=== PATIENT | female | born 1985 | race Caucasian/White ===

== ENCOUNTER 2017-05-10 11:04 | Outpatient (CLI) | payer OTHER | END 2017-05-10 11:05 | disposition home or self-care (01) | LOC: LAB.R 11:04 | PROVIDERS: ATTEND Obstetrics & Gynecology | DX: Z36.9 Encounter for antenatal screening, unspecified (principal) | CPT/HCPCS: 87081; 87797 ==

== ENCOUNTER 2017-05-22 13:50 | Outpatient (CLI) | payer OTHER ==
[2017-05-22 14:07] VITALS: BP 118/72
== END 2017-05-22 15:00 | disposition home or self-care (01) ==
LOC: WFO 13:50 → FBP 13:51 → WFO 15:00
PROVIDERS: ATTEND Registered Nurse
DX: O99.89 Other specified diseases and conditions complicating pregnancy, childbirth and the puerperium (principal); R00.2 Palpitations; Z3A.37 37 weeks gestation of pregnancy
CPT/HCPCS: 59025

== ENCOUNTER 2017-05-31 16:02 | Outpatient (CLI) | payer OTHER ==
[2017-05-31 17:35] VITALS: BP 125/74
== END 2017-05-31 17:10 | disposition home or self-care (01) ==
LOC: WFO 16:02 → FBP 16:04 → WFO 17:10
PROVIDERS: ATTEND Registered Nurse
DX: Z34.83 Encounter for supervision of other normal pregnancy, third trimester (principal)
CPT/HCPCS: 59025

== ENCOUNTER 2017-06-06 22:00 | Inpatient (IN) | payer OTHER ==
[2017-06-06] MEDS ORDERED: LACTATED RINGERS 1,000 ML IV ONE (22:11)
[2017-06-06] MEDS ORDERED: SODIUM CHLORIDE FLUSH 0.9% 10 ML SYRINGE IVP ONE (22:11)
[2017-06-06] MEDS ORDERED: SODIUM CHLORIDE FLUSH 0.9% 10 ML SYRINGE IVP PRN (22:37)
[2017-06-06] MEDS ORDERED: PENICILLIN G POTASSIUM 5,000,000 UNIT in SODIUM CHLORIDE 0.9% MINIBAG 100 ML IV ONE (22:37)
[2017-06-06] MEDS ORDERED: ONDANSETRON 4 MG/2 ML VIAL IVP PRN (22:37)
[2017-06-06] MEDS ORDERED: fentaNYL 100 MCG/2 ML VIAL IVP PRN ×2 (22:37→23:39)
[2017-06-06 22:53] LABS: BASOPHILS # (AUTO) 0.1 10^3/uL (0.0-0.1); BASOPHILS % (AUTO) 0.7 %; EOSINOPHILS # (AUTO) 0.1 10^3/uL (0.0-0.7); EOSINOPHILS % (AUTO) 0.9 %; HCT - HEMATOCRIT 35.7 % (37.0-47.0); HGB - HEMOGLOBIN 12.3 g/dL (12.0-16.0); LYMPHOCYTES # (AUTO) 2.2 10^3/uL (1.5-3.5); MEAN CORPUSCULAR HEMOGLOBIN 32.3 pg (27.0-31.0); MEAN CORPUSCULAR HGB CONC 34.5 g/dL (32.0-36.0); MEAN CORPUSCULAR VOLUME 93.7 fL (81.0-99.0); MEAN PLATELET VOLUME 10.1 fL (7.9-10.8); MONOCYTES # (AUTO) 0.4 10^3/uL (0.0-1.0); NEUTROPHILS # (AUTO) 5.9 10^3/uL (1.5-6.6); NEUTROPHILS % (AUTO) 68.4 %; RED BLOOD COUNT 3.81 10^6/uL (4.20-5.40); RED CELL DISTRIBUTION WIDTH 12.9 % (12.0-15.0); UNCORRECTED WHITE BLOOD COUNT 8.6 x10^3/uL; WHITE BLOOD COUNT 8.6 x10^3/uL (4.8-10.8)
[2017-06-06] MEDS ORDERED: OXYTOCIN/SODIUM CHLORIDE 250 ML IV SCH (23:00)
[2017-06-06] MEDS ORDERED: TERBUTALINE 1 MG/ML VIAL SUBQ SCH (23:00)
[2017-06-06] MEDS: LACTATED RINGERS 1,000 ML IV SCH (23:32)
--- NOTE | 2017-06-06 23:43 | HISTORY & PHYSICAL EXAMINATION ---
Admit History - Instructions [place]/Slash: -Left hand click circles element as positive or present. -Right hand click slashes element as negative or not present. - Visit Reason Visit Reason: Membranes rupture (for clear amniotic fluid @ 211406/06/2017) - : 3 Parity: 2 Premature: 0 Ectopic: 0 : 0 Care: positive: [facility] Risk/History: positive: None, Prolonged rupture membrane Complications This : positive: Other (GBS positive) Smoking Status: Never smoker - Mother's Labs Mother's Blood Type: positive: O Mother's RH: positive: Positive GBS: positive: Group B Strep Positive Rubella Status: positive: Non-immune Meds/Allgy - Home Medications Home Medications: Ambulatory Orders Medication Instructions Recorded Confirmed HYDROcod/ACETAM 5/325 [Vicodin 1 - 2 ea PO Q6H PRN 09/04/13 09/04/13 5/325] HYDROcod/ACETAM 5/325 [Vicodin 1 - 2 ea PO Q6H PRN #15 tablet 09/04/13 5/325] SUMAtriptan [Imitrex] 25 mg PO TID PRN #15 tablet 09/04/13 Amoxicillin 500 mg PO TID #30 capsule 01/09/17 Pnv95/Ferrous Fumarate/FA 1 tab PO DAILY 01/09/17 01/09/17 [ Tablet] - Allergies Allergies/Adverse Reactions: Allergies Allergy/AdvReac Type Severity Reaction Status Date / Time acetaminophen [From [place]] Allergy Rash Verified 01/09/17 09:46 hydrocodone bitartrate * Allergy Rash Verified 01/09/17 09:46 [From [place]] Physical - Abdominal Exam Vital Signs: Temp Pulse Resp BP Pulse Ox 36.8 C 80 16 129/80 99 06/06/17 22:16 06/06/17 22:16 06/06/17 22:16 06/06/17 22:16 06/06/17 22:16 Contraction Intensity: positive: Mild Uterine Resting Tone: positive: Soft - Monitoring Heart Rate Baseline: 125 Strip Review: positive: Category I - Presentation Presentation: positive: Vertex - Vaginal Exam Membranes: positive: Membranes ruptured (per RN, grossly SROM for CAF) Dilation (in cm): 3 Effacement (%): 75 Station: positive: -2 Cervical Position: positive: Anterior (per RN exam) - Speculum Exam Speculum Exam Performed: positive: No Findings: positive: Gross leak - Other Notes Labor Progress Note/Additional Text: Temitope Leyva is a 32 y/o @ 40w1d gestation by 9 week US, who presented for care @ 9 weeks' gestation & received care t/o her for a total of 11 visits. She gained a total of 36# this . Her labs are notable for O+ blood type, rubella NI status, GBS + screening @ 36 weeks' gestation. She received tdap vaccination on 03/15/2017 & influenza vaccination on 05/10/2017. She transferred to [facility] care @ 37 weeks' gestation. Her obstetric hx is notable for two prior NSVDs w/ epidural anesthesia, largest [id number]. She had some challenges and she hopes to breastfeed for longer duration this time. She is anticipating that she will want an epidural for anesthesia w/ this delivery. Her medical history is notable for varicella in 1991. Her surgical hx is notable for uncomplicated tonsillectomy in 2004. She is presently taking vitamins and no other medications. She reports an allergy to [place], which causes a rash. She denies use of ETOH/drugs/ tobacco. 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 She is & well-supported by her , Armin. 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 HPI: Temitope presents this evening accompanied by her , Armin, with a complaint of SROM for CAF @ 2100. She denies vaginal bleeding. She reports good FM. She had not previously been having uterine contractions, but she reports that she is now having more discomfort w/ the contractions that have begun. ROS: GEN: No fever, slight fatigue HEENT: reports mild PATEL that started around 2100, requests Tylenol, no vision changes LUNGS: No dyspnea, no cough HEART: No chest pain, no palpitations GI: Had emesis x1 this am around 0830, no vomiting since; no nausea, no diarrhea : No dysuria, no bloody vaginal d/c. +LOF OB: +FM, contractions increasing in intensity. SKIN: No pruritus, no lesion EXTREMITIES: FROM, no discomfort, + edema @ b/l ankles NEURO: No numbness, tingling, weakness PSYCH: Slight anxiety, extreme excitement--did not sleep earlier & would like to try to rest PE: GEN: AAOx3, NAD WA gravid female HEENT: Grossly normocephalic, atraumatic, PERRLA, EOMI LUNGS: CTA b/l T/o HEART: RRR nls1s2, no murmur GI: Abd NT, gravid : Gross LOF per RN, SVE deferred--RN examined immediately upon presentation OB: lie longitudinal, position cephalic, EFW 6.5-7#, palpable movement, mild uterine contractions EFM: [id number], + accels, no decels, mod variability TOCO: UCs q3-8 minutes x70-90 seconds, palpably moderate SKIN: C/D/I w/o lesion EXTREMITIES: FROM t/o, +2 pitting edema b/l, no erythema, neg Lissa's NEURO: No focal deficit PSYCH: Normal mood & affect Assessment: SROM x3 hours for CAF, GBS positive, FHTs cat I, term , adequate pain control @ present w/o analgesia/anesthesia, mild PATEL w/o additional symptoms, normotensive Plan for Labor - Plan For Labor : expectant Plan for Labor: 1. Reviewed management options w/ pt, who prefers strongly to avoid Pitocin infusion if possible & would like to await labor @ this time--she states that the contractions she is feeling are new since SROM, reviewed risks r/t expectant management & pt articulates understanding & would like to wait 2. Reviewed pain management options; pt would ultimately like epidural, reviewed 3. GBS prophylaxis w/ IV PCN per protocol 4. Intermittent auscultation appropriate @ this time; FHTs cat I & pt is low- risk & term 5. Encouraged maternal & paternal rest @ this time in anticipation of active labor 6. Admit to inpatient: CBC/blood bank hold/regular diet 7. Reassess cervical status as clinically indicated; reviewed importance of minimizing SVE in light of SROM, will otherwise defer cervical exam & reassess @ 12 hours s/p SROM if no clear indication of labor progress @ that time 8. Reviewed plan of care w/ pt, partner & RN @ bedside; all in agreement, without concerns.
[2017-06-07] MEDS: ACETAMINOPHEN 325 MG TABLET PO SCH ×3 (00:11→20:43)
--- NOTE | 2017-06-07 02:58 | PROVIDER PROGRESS NOTE ---
Labor Progress Note - Uterine Monitoring Uterine Monitoring Mode: positive: External toco Contraction Frequency (min/apart): 2 Contraction Intensity: positive: Strong Uterine Resting Tone: positive: Soft - Monitoring Monitor Mode: positive: External ultrasound Heart Rate Baseline: 120 Heart Rate Variability: positive: Moderate (6-25 bmp) Accelerations: positive: Present, 15x15 Decelerations: positive: Early, Prolonged (>2x10 min) (isolated prolonged deceleration to riley in 60s w/ spontaneous return to baseline w/in 2 minutes) Strip Review: positive: Category II - Vaginal Exam Dilation (in cm): 4 Effacement (%): 90 Station: 0 (per RN) Cervical Position: Anterior - Labor Progress Note Labor Progress Note/Additional Text: S: Temitope is in significant discomfort, requesting epidural placement. She feels considerable pressure w/ each contraction. She is gripping the bedrails & moaning w/ her contractions. O: T: 36.8 HR 60bpm, RR 22, BP 117/77 EFM BL 120bpm, + accels, repetitive early decels, isolated prolonged deceleration to riley in the 60s w/ spontaneous return to baseline over a period of 2 minutes in response to IV fluid bolus, application of maternal O2 & position change TOCO: UCs q2-3 minutes x60-80 seconds, palpably strong SVE per RN: 4/90/0 anterior, stretchy, ongoing leakage of CAF A: 32 y/o @ 40w1d by first trimester US in spontaneous, active labor s/p SROM for CAF @ 2115, for a total ruptured duration of 5.5 hours, afebrile GBS positive s/p 1 dose IV PCN for prophylaxis Inadequate pain control w/ desire for epidural placement FHTs cat II P: 1. Anesthesia to place epidural now 2. Reassess cervical status once comfortable, earlier PRN 3. Continue GBS prophylaxis w/ IV PCN per protocol 4. Careful ongoing monitoring of FHTs w/ placement of FSE if difficulty tracing externally
[2017-06-07] MEDS ORDERED: fent/BUPIV 2 MCG/0.125% 250 ML EP ONE (03:37)
[2017-06-07] MEDS ORDERED: NALBUPHINE 20 MG/ML AMP IVP PRN (04:06)
[2017-06-07] MEDS ORDERED: ONDANSETRON 4 MG/2 ML VIAL IVP PRN (04:06)
[2017-06-07] MEDS ORDERED: ePHEDrine 50 MG/ML VIAL IVP PRN (04:06)
[2017-06-07] MEDS ORDERED: fent/BUPIV 2 MCG/0.125% 250 ML EP PRN (04:06)
[2017-06-07] MEDS ORDERED: LACTATED RINGERS 500 ML IV ONE (04:06)
[2017-06-07] MEDS ORDERED: NALOXONE 0.4 MG/ML VIAL IVP PRN (04:06)
[2017-06-07] MEDS ORDERED: METOCLOPRAMIDE 10 MG/2 ML VIAL IVP PRN (04:06)
[2017-06-07] MEDS: LACTATED RINGERS 1,000 ML IV SCH ×3 (04:32→12:16)
[2017-06-07] MEDS: PENICILLIN G POTASSIUM 2,500,000 UNIT in SODIUM CHLORIDE 0.9% 100ML 100 ML IV SCH ×2 (04:33→09:22)
[2017-06-07] MEDS ORDERED: SODIUM CHLORIDE FLUSH 0.9% 10 ML SYRINGE IVP SCH (06:00)
--- NOTE | 2017-06-07 08:14 | PROVIDER PROGRESS NOTE ---
Labor Progress Note - Uterine Monitoring Uterine Monitoring Mode: positive: External toco Contraction Frequency (min/apart): erratic Contraction Intensity: positive: Mild Uterine Resting Tone: positive: Soft - Monitoring Monitor Mode: positive: External ultrasound Heart Rate Baseline: 120 Heart Rate Variability: positive: Moderate (6-25 bmp) Accelerations: positive: Present, 15x15 Decelerations: positive: None Strip Review: positive: Category I - Vaginal Exam Dilation (in cm): 4 Effacement (%): 90 Station: 0 Cervical Position: Anterior - Labor Progress Note Labor Progress Note/Additional Text: S: Temitope was able to sleep about 1 hour. She is nauseated & has had some emesis. She is now quite pruritic s/p epidural placement. She is no longer having any discomfort, and she denies any sensation of pressure. Her , Armin, is present @ the bedside & is involved & supportive. O: VS: T: 36.8, HR 964, RR 20, BP 113/74 EFM: BL 120bpm, + accels, no decels, mod variability TOCO: Occasional uterine contractions; erratic w/o clear pattern SVE per RN: /0; ongoing leakage of CAF A: 32 y/o @ 40w1d s/p SROM for CAF 06/06/2017 @ 2115, for a total ruptured duration of 11 hours, afebrile GBS positive s/p 2 doses IV PCN for prophylaxis Initial cervical change w/ regular, spontaneous contractions; cessation of both cervical change & uterine contractions s/p epidural placement Adequate pain control w/ epidural anesthesia Pruritus secondary to epidural infusion, intermittent nausea P: 1. Reviewed options for management & cessation of uterine contractions, recommend Pitocin infusion & pt concurs; begin Pitocin infusion & titrate per protocol to adequate contraction pattern by tocometry 2. Reassess cervical status 2 hours s/p establishment of adequate contraction pattern by tocometry, earlier PRN 3. diphenhydramine 12.5mg IVP for pruritus; ondansetron 4mg IVP for nausea 4. Continue GBS prophylaxis w/ IV PCN per protocol 5. Encouraged parental rest 6. Reviewed plan of care w/ pt, partner & RN @ bedside; all in agreement, without concerns.
[2017-06-07] MEDS ORDERED: SODIUM CHLORIDE 0.9% 100ML 100 ML IV ONE (08:45)
[2017-06-07] MEDS: diphenhydrAMINE INJ 50 MG/ML VIAL IVP PRN ×2 (08:45→14:41)
[2017-06-07] MEDS ORDERED: OXYTOCIN/SODIUM CHLORIDE 250 ML IV SCH (09:00)
--- NOTE | 2017-06-07 11:42 | PROVIDER PROGRESS NOTE ---
Labor Progress Note - Uterine Monitoring Uterine Monitoring Mode: positive: External toco Contraction Frequency (min/apart): 2-4 on 5mU/min of Pitocin Contraction Intensity: positive: Strong Uterine Resting Tone: positive: Soft - Monitoring Monitor Mode: positive: External ultrasound Heart Rate Baseline: 115 Heart Rate Variability: positive: Moderate (6-25 bmp) Accelerations: positive: Present, 15x15 Decelerations: positive: None Strip Review: positive: Category I - Vaginal Exam Dilation (in cm): 8 Effacement (%): 100 Station: 0 Cervical Position: Anterior (per RN exam) - Labor Progress Note Labor Progress Note/Additional Text: S: Temitope is comfortable w/ her epidural & is trying to sleep. O: VS: T 37.2 HR 51 RR 16 BP 103/61 EFM BL 115bpm, _+ accels, no decels, mod variability TOCO: UCs q2-4 min x70-90 seconds on 5mU/min of Pitocin SVE per RN: 8/100/0, ongoing leakage of CAF A: 32 y/o @ 40w1d w/ SROM for CAF 06/06/2017 @ 2115, for a total ruptured duration of 14.5 hours, afebrile GBS positive s/p 3 doses IV PCN for prophylaxis Adequate pain control w/ epidural anesthesia FHTs cat I Progressive cervical change w/ Pitocin augmentation P: 1. Encouraged maternal rest 2. Continue to titrate Pitocin infusion per protocol to maintain adequate contraction pattern by tocometry 3. Continue GBS prophylaxis w/ IV PCN per protocol 4. Allow pt to labor down until sensation of consistent pressure 5. Anticipate
[2017-06-07] MEDS ORDERED: HYDROCORTISONE 1% CREAM 28 GM TUBE PR PRN (12:52)
[2017-06-07] MEDS ORDERED: OXYTOCIN/SODIUM CHLORIDE 250 ML IV ONE (12:52)
[2017-06-07] MEDS ORDERED: HYDROCORTISONE/PRAMOXINE 10 GM PR PRN (12:52)
[2017-06-07] MEDS ORDERED: WITCH HAZEL/GLYCERIN 1 EACH MED..PAD TOP PRN (12:52)
[2017-06-07] MEDS ORDERED: MAGNESIUM HYDROXIDE 2,400 MG/30 ML UDC PO PRN (12:52)
--- NOTE | 2017-06-07 12:58 | DELIVERY NOTE ---
Delivery Note - Labor Labor: positive: Augmented by oxytocin - Delivery Method Delivery Method: positive: Spontaneous vaginal delivery - Presentation Presentation: positive: Vertex, JUANPABLO - right occiput anterior - Nuchal Cord Nuchal Cord: positive: Present (x1, loose), Reduced (easily prior to delivery of shoulders/body) - Anesthetic Anesthetic Type: Anesthetic: positive: Other (epidural) - Amniotic Fluid Description Amniotic Fluid Description: positive: Clear - Episiotomy Type Episiotomy Type: positive: None - Laceration Laceration: positive: None - Delivery Outcome Delivery Outcome: positive: Livebirth - : positive: Placed in direct skin contact with mother, Stimulated, Warmed , [place] used [place] sex: positive: Female - Cord Cord: positive: 3 vessels - Placenta Placenta: positive: Intact, Spontaneous - Estimated Blood Loss Estimated Blood Loss (in cc): 250 - Post Delivery Events Post Delivery Events: positive: No post delivery events - Delivery Comments (Free Text/Narrative) Delivery Comments (Free Text/Narrative): Ilda Leyva is a 32y/o [id number] who presented w/ a complaint of SROM for CAF @ 40 weeks' gestation; SROM @ 2115 on 06/06/2017; total ruptured duration 15 hours , 20 minutes--afebrile t/o labor. Her course was remarkable for her rubella non-immune status & her GBS positive status. On admission, she was in early latent labor & IV PCN was begun for GBS prophylaxis. She received 3 total doses of IV PCN prior to delivery. Shortly after admission, she became increasingly uncomfortable w/ the spontaneous onset of uterine contractions & requested epidural anesthesia, which was placed. Thereafter, she made no further spontaneous cervical change & underwent augmentation w/ Pitocin infusion to a max of 5mU/min. She progressed quite rapidly following initiation of infusion & was found to be completely dilated @ 1225, for a total first stage duration of 10 hours. FHTs were monitored electronically t/o the first stage & were cat I-II t/o. Ilda pushed w/ spontaneous urge x1 to of viable female in JUANPABLO position @ 1235, for a total 2nd stage duration of 10 minutes. FHTs were monitored electronically t/o the second stage & were cat I. Loose nuchal x1 reduced easily prior to delivery of shoulders/body. vigorous w/ spontaneous, lusty cry. Placed to maternal abdomen for drying/ stim. Delayed cord clamping until cessation of pulsation, then cord clamped x2 by CNM, cut by pt. 3VC noted, cord blood obtained. Active management of the 3rd stage w/ Pitocin in IV fluids. Placenta delivered spontaneously & intact, Leydi, @ 1239, for a total 3rd stage duration of 4 minutes. FF U-2. Vagina & perineum inspected & found to be intact. weight pending--apgars 8 @ 1min & 9 @ 5min. Pt plans to breastfeed & was in place, nuzzling @ breast, w/in moments of delivery. FOB involved & supportive @ bedside. Mother & infant, Kayla, actively bonding, stable.
[2017-06-07] MEDS ORDERED: MEASLES,MUMPS & RUBELLA VACC 0.5 ML VIAL SUBQ ONE (14:00)
[2017-06-07] MEDS: IBUPROFEN 800 MG TABLET PO SCH ×2 (14:41→20:43)
[2017-06-07] MEDS: DOCUSATE SODIUM 100 MG CAPSULE PO SCH (20:43)
[2017-06-07] MEDS ORDERED: SODIUM CHLORIDE FLUSH 0.9% 10 ML SYRINGE IVP ONE (20:43)
[2017-06-08] MEDS: ACETAMINOPHEN 325 MG TABLET PO SCH ×4 (02:24→22:07)
[2017-06-08] MEDS: oxyCODONE 5 MG TABLET PO PRN ×3 (02:24→20:12)
[2017-06-08] MEDS: IBUPROFEN 800 MG TABLET PO SCH ×4 (02:25→22:07)
[2017-06-08] MEDS ORDERED: SODIUM CHLORIDE FLUSH 0.9% 10 ML SYRINGE IVP ONE (05:47)
[2017-06-08] MEDS: DOCUSATE SODIUM 100 MG CAPSULE PO SCH ×2 (10:02→20:12)
--- NOTE | 2017-06-08 10:13 | Discharge Plan ---
Discharge Plan Disposition: 01 Home, Self Care Condition: Good Diet: Regular Activity Restrictions: pelvic rest x6 weeks Shower Restrictions: No Driving Restrictions: No Weight Bearing: Full Weight Instruction Topics: Vaginal After, Breastfeed How To, Jaundice Signs Inf Additional Instructions or Follow Up instructions: Follow up x2 weeks with Martha Frazier CNM, ARNP, earlier as needed for support No Smoking: If you smoke, Please STOP! Call for help.
--- NOTE | 2017-06-08 10:19 | DISCHARGE SUMMARY ---
"Discharge Summary Admit Date: 06/06/17 Discharge Date: 06/08/17 Discharging Provider: LINDSAY RODRIGUES Condition at Discharge: Good Discharge Disposition: 01 Home, Self Care Discharge Facility Name: [facility] - DIAGNOSES Admission Diagnoses: LEAKAGE OF AMNIOTIC FLUID GBS CULTURE POSITIVE 40 WEEKS OF Discharge Diagnoses with Status of Each Condition: - HPI History of Present Illness: Ilda Leyva is a 32 y/o [id number] who was admitted 06/06/2017 following SROM for CAF @ 2115. She was in latent labor. She entered active labor at 0225 on 06/07 & received epidural anesthesia per request. She received IV PCN for IPAP for her GBS positive status for 3 total doses during her admission. She then failed to experience further spontaneous cervical change & received Pitocin augmentation for effective uterine contractions to a maximum infusion of 5mU/ min. She progressed thereafter to complete dilatation & delivered a viable female vaginally over an intact perineum 06/07/2017 @1225pm, for a total ruptured duration of 15 hours, 10 minutes and a total labor duration of 10 hours. Her delivery was uncomplicated. - CONSULTS | PROCEDURES Procedures: Epidural placement - HOSPITAL COURSE Hospital Course: , she is ambulating & voiding w/o incident. She is tolerating a regular diet & passing flatus. She is well w/ excellent latch & has had two previous experiences that lasted a maximum of 6 months. She is planning to breastfeed longer this time. Her lochia is minimal rubra, and she reports adequate pain control. She is not planning to return to work. Her will have 10 days of pp leave to assist her at home & she reports additional excellent social support. She denies hx of pp depression. She is undecided regarding pp contraceptive method. She is planning to have an additional 3 children & has conceived in shortly after her previous pregnancies. She is able to fully articulate pp warning s/sx, including pp depression s/sx, and pp aftercare instructions. She is ready to leave the hospital. - ALLERGIES Allergies/Adverse Reactions: Allergies Allergy/AdvReac Type Severity Reaction Status Date / Time acetaminophen [From [place]] Allergy Rash Verified 01/09/17 09:46 hydrocodone bitartrate * Allergy Rash Verified 01/09/17 09:46 [From [place]] - MEDICATIONS Home Medications: Ambulatory Orders Medication Instructions Recorded Confirmed Pnv95/Ferrous Fumarate/FA 1 tab PO DAILY 01/09/17 01/09/17 [ Tablet] - PHYSICAL EXAM AT DISCHARGE General Appearance: positive: No acute distress, Alert Eyes Bilateral: positive: Normal inspection, PERRL, EOMI ENT: positive: ENT inspection nml Respiratory: positive: Chest non-tender, No respiratory distress, Breath sounds nml Cardiovascular: positive: Regular rate & rhythm, No murmur, No gallop Abdomen: positive: Non-tender, No distention, Other (FF U-2) Skin: positive: Color nml, No rash, Warm, Dry Extremities: positive: Non-tender, Full ROM, Nml appearance, No pedal edema. negative: Calf tenderness, Lissa's sign/cords Neurologic/Psychiatric: positive: Oriented x3, CN's nml (2-12), Motor nml, Sensation nml, Mood/affect nml Physical Exam Other/Comments: Breasts b/l s, nt. Nipple b/l intact & everted; colostrum easily expressible. Perineum intact w/o erythema/ecchymosis/edema. Minimal lochia rubra. - LABS Result Diagrams: 06/06/17 22:28 - FOLLOW UP Follow Up: x2 weeks in outpt clinic w/ Lindsay Rodrigues CNM, STEFAN[place], earlier PRN for support. - TIME SPENT Time Spent in Discharge (Minutes): 30"
[2017-06-09] MEDS: oxyCODONE 5 MG TABLET PO PRN ×2 (03:47→08:51)
[2017-06-09] MEDS: ACETAMINOPHEN 325 MG TABLET PO SCH ×3 (03:47→14:58)
[2017-06-09] MEDS: IBUPROFEN 800 MG TABLET PO SCH ×3 (03:47→14:59)
[2017-06-09 08:48] VITALS: BP 115/63
[2017-06-09] MEDS: DOCUSATE SODIUM 100 MG CAPSULE PO SCH (08:51)
--- NOTE | 2017-06-09 15:55 | Labor Flowsheet ---
Labor Flowsheet Datetime Report Generated by CPN: 06/09/2017 15:55 Datetime: 06/09/2017 08:45 VITAL SIGNS NBP Sys/Chetna/Mean (mmHg): 115 : 63 : 76 Pulse: 69 LaborFlag: Labor Datetime: 06/08/2017 04:40 SpO2 (%): 99 Datetime: 06/07/2017 12:35 STAGE 2 Pushing: Urge to Push Pushing Position: Pushing with Contractions Pushing Progress: Descent with Pushing Stage 2 Comments: great ! Datetime: 06/07/2017 12:30 ASSESSMENT A Monitor Mode: External US FHR Baseline Rate : 100 FHR Baseline Changes: No Baseline Change Variability: Moderate 6-25 bpm Decelerations: Early Category: Category I Membrane Status: Ruptured Patient Position/Activity: Left Lateral Datetime: 06/07/2017 12:25 Accelerations: 15X15 PAIN Pain Presence: None/Denies VAGINAL EXAM Dilatation (cm): 10.0 Station: 2 Vaginal Bleeding: Normal Show Cervix, Consistency: Soft Cervix, Position: Anterior COMMUNICATION Communication: Call/Page Placed to Provider Communication Comments: come for Datetime: 06/07/2017 12:05 Anesthesia Level Check: T10- Umbilicus Datetime: 06/07/2017 12:00 Effacement (%): 100 Datetime: 06/07/2017 11:30 Temperature (C): 36.8 UTERINE ACTIVITY Monitor Mode: External Quality: Strong Duration (sec): 90 Pattern: Normal: <= 5 Contractions in 10 Minutes Resting Tone (Palpate): Relaxed Pitocin Checklist: At Least 1 Acceleration of 15 bpm x 15 Seconds in 30 Minutes or Adequate Variabi lity; Uterus Palpates Soft between Contractions Amniotic Fluid Color: Clear Amniotic Fluid Odor: Normal Datetime: 06/07/2017 11:00 Frequency (min): 4-5 Headache: Denies PATIENT CARE Oxygen Method: Room Air ANESTHESIA Anesthesia Plans: Epidural Datetime: 06/07/2017 10:30 Breath Sounds, Left: Clear and Equal Breath Sounds, Right: Diminished MEDICATIONS Pitocin (milliunits): Increased to @ 5 I/O Interventions: Clear Liquids Given; Bedpan Given Datetime: 06/07/2017 10:07 Epidural Procedure Other: Redose Anesthesia Comments: turned to left tilt Datetime: 06/07/2017 09:55 Monitor Interventions for FHR: Ultrasound Adjusted Datetime: 06/07/2017 09:29 MATERNAL ASSESSMENT Level of Consciousness: Fully Conscious Hygiene: Oral Care TEACHING Plan of Care: Plan of Care Discussed Datetime: 06/07/2017 09:14 Comments: baby sleepy - mom had Benadryl Datetime: 06/07/2017 08:59 Antiemetics/Antacids: Other Antiemetic/Antacid @ Benadryl 25 mg IV Medication Comments: Benadryl for itching Datetime: 06/07/2017 08:07 Provider Reviewed Strip: Yes Strip Reviewed by: M Milagrosa CNM Notification Reason: Status Update Datetime: 06/07/2017 07:59 Amniotic Fluid Amount: Scant Datetime: 06/07/2017 07:44 Respirations: 16 Exam by: Farzana Mcdaniels RNC Lie 'A': Longitudinal RUQ Epigastric Pain: Denies Procedures: Sterile Vag Exam Labor/Induction: Labor Stages; Augmentation Datetime: 06/07/2017 06:45 Stage of : Labor Datetime: 06/07/2017 05:46 Temperature Route: Oral Datetime: 06/07/2017 05:11 Actions for Decelerations: Side to Side Datetime: 06/07/2017 04:44 Monitor Interventions for UA: [place] Adjusted
== END 2017-06-09 15:30 | disposition home or self-care (01) | DRG 775 ==
LOC: WFO 22:00 → FBP 22:01 → WFO 22:33 → FBP 22:35
PROVIDERS: ADMIT Registered Nurse; ATTEND Registered Nurse
PROC: 10E0XZZ Delivery of Products of Conception, External Approach (ICD-10-PCS; principal; 2017-06-07)
DX: O42.02 Full-term premature rupture of membranes, onset of labor within 24 hours of rupture (principal); O69.81X0 Labor and delivery complicated by cord around neck, without compression, not applicable or unspecified; O99.824 Streptococcus B carrier state complicating childbirth; Z3A.40 40 weeks gestation of pregnancy; Z37.0 Single live birth
CPT/HCPCS: 85025; 99213

== ENCOUNTER 2018-01-04 19:36 | Emergency (ER) | payer OTHER ==
--- NOTE | 2018-01-04 20:37 | ED Physician Documentation ---
PD HPI BACK PAIN - Stated complaint Stated Complaint: NECK PX/BACK PX - Chief complaint Chief Complaint: Back Pain - History obtained from History obtained from: Patient - History of Present Illness Timing - onset: Today (Standing at kitchen counter and felt pain near shoulder blade and moved to neck and mid back and has difficulty rotating neck. No H/O similar prior sx. Took ASA which did help.) PD PAST MEDICAL HISTORY - Past Medical History Past Medical History: Yes PSYCHOLOGICAL OPERATIONS: Endometriosis - Past Surgical History Past Surgical History: Yes HEENT: Tonsil/Adenoidectomy - Present Medications Home Medications: Ambulatory Orders Medication Instructions Recorded Confirmed Pnv95/Ferrous Fumarate/FA 1 tab PO DAILY 01/09/17 01/09/17 [ Tablet] Cyclobenzaprine [Flexeril] 10 mg PO TID PRN #10 tablet 01/04/18 - Allergies Allergies/Adverse Reactions: Allergies Allergy/AdvReac Type Severity Reaction Status Date / Time acetaminophen [From [employer]] Allergy Rash Verified 01/04/18 19:50 hydrocodone bitartrate * Allergy Rash Verified 01/04/18 19:50 [From [employer]] - Social History Does the pt smoke?: No Smoking Status: Never smoker Does the pt drink ETOH?: No Does the pt have substance abuse?: No - Immunizations Immunizations are current?: Yes Immunizations: TDAP >10years/unknown PD ED PE NORMAL - Vitals Vital signs reviewed: Yes - General General: Alert and oriented X 3, Other (holding neck rotated to right, will not look to left, mild TTP low SCM on right.) - HEENT HEENT: PERRL, EOMI - Neck Neck: Supple, no meningeal sign, No bony TTP - Cardiac Cardiac: RRR, No murmur, Strong equal pulses (and equal BUE BPs done by me during exam) - Respiratory Respiratory: No respiratory distress, Clear bilaterally - Back Back: No CVA TTP, No spinal TTP - Neuro Neuro: Alert and oriented X 3, Normal speech - Psych Psych: Normal mood, Normal affect Results - Vitals Vitals: Vital Signs - 24 hr 01/04/18 19:47 Temperature 36.3 C L Heart Rate 63 Respiratory 18 Rate Blood Pressure 117/73 O2 Saturation 99 Oxygen O2 Source Room air Departure - Departure Disposition: 01 Home, Self Care Clinical Impression: Torticollis, acute Condition: Good Record reviewed to determine appropriate education?: Yes Instructions: ED Spasm Neck No Injury Prescriptions: Cyclobenzaprine [Flexeril] 10 mg PO TID PRN #10 tablet PRN Reason: Pain Comments: Call your doctor to arrange a follow-up appointment, make the next available appointment. In the interim, return anytime if worse or if new symptoms develop.
[2018-01-04] MEDS ORDERED: CYCLOBENZAPRINE 10 MG Prepack 2 PO PRN (20:50)
[2018-01-04 21:18] VITALS: BP 131/83
== END 2018-01-04 21:16 | disposition home or self-care (01) ==
LOC: ED 19:36
DX: M43.6 Torticollis (principal)
CPT/HCPCS: 99283

== ENCOUNTER 2018-02-11 11:07 | Outpatient (CLI) | payer OTHER | END 2018-02-11 11:08 | disposition home or self-care (01) | LOC: LAB 11:07 | PROVIDERS: ATTEND Registered Nurse | DX: R53.82 Chronic fatigue, unspecified (principal) | CPT/HCPCS: 36415; 84443 ==

== ENCOUNTER 2019-12-11 21:52 | Outpatient (CLI) | payer OTHER | END 2019-12-11 21:53 | disposition critical access hospital (66) | LOC: EMS 21:52 | PROVIDERS: ATTEND Surgery | DX: R20.0 Anesthesia of skin (principal) | CPT/HCPCS: A0425; A0429 ==

== ENCOUNTER 2019-12-11 22:08 | Observation (INO) | payer OTHER ==
--- NOTE | 2019-12-11 22:27 | ED Physician Documentation ---
PD HPI FOCAL NEURO - Stated complaint Stated Complaint: L SIDE NUMBNESS - Chief complaint Chief Complaint: Neuro - History obtained from History obtained from: Patient - History of Present Illness Timing - onset: Enter time (20:00), Today Timing - details: Abrupt onset, Constant Severity of deficit: Mild Weakness: Arm, Hand, Leg, Foot, Left Numbness: Face, Arm, Hand, Leg, Foot, Left Associated symptoms: No: Headache, Nausea / vomiting, Seizure, Syncope, Fall, Head injury, Chest pain, Neck pain, Back pain, Fever Contributing factors: negative: Anticoagulated, Vascular dz, Atrial fibrillation, Prosthetic heart valve Baseline status: positive: A&OX3, ambulatory, indep Similar symptoms before: Has not had sx before Recently seen: Not recently seen - Additional information Additional information: patient c/o sudden onset left-sided paresthesias, face>LUE=LLE. She also feels weakness of LUE and LLE, but unclear how much of this is weakness versus decreased sensation. She says her left face also feels itchy, and she feels as if she is drooling from left side of mouth. Review of Systems Constitutional: reports: Reviewed and negative Eyes: reports: Reviewed and negative Ears: reports: Reviewed and negative Nose: reports: Reviewed and negative Throat: reports: Reviewed and negative Cardiac: reports: Reviewed and negative Respiratory: reports: Reviewed and negative GI: reports: Reviewed and negative : denies: Unable to Void, Incontinent, Now EGA Skin: reports: Reviewed and negative Musculoskeletal: reports: Reviewed and negative Neurologic: reports: Focal weakness, Numbness. 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 - Past Surgical History Past Surgical History: Yes HEENT: Tonsil/Adenoidectomy - Present Medications Home Medications: Ambulatory Orders Medication Instructions Recorded Confirmed Naltrexone HCl 50 mg PO 12/11/19 - Allergies Allergies/Adverse Reactions: Allergies Allergy/AdvReac Type Severity Reaction Status Date / Time No Known Drug Allergies Allergy Verified 12/11/19 22:16 - Living Situation Living Arrangement: reports: At home - Social History Does the pt smoke?: No Smoking Status: Never smoker Does the pt drink ETOH?: No ETOH Use: Liquor Does the pt have substance abuse?: No - Immunizations Immunizations are current?: Yes Immunizations: TDAP >10years/unknown PD ED PE NORMAL - Vitals Vital signs reviewed: Yes - General General: Alert and oriented X 3, No acute distress, Well developed/nourished - HEENT HEENT: Atraumatic, PERRL, EOMI, Moist mucous membranes, Pharynx benign - Neck Neck: Supple, no meningeal sign - Cardiac Cardiac: RRR, No murmur, No gallop, No rub - Respiratory Respiratory: No respiratory distress, Clear bilaterally - Abdomen Abdomen: Soft, Non tender - Derm Derm: Normal color, Warm and dry, No rash - Extremities Extremities: No deformity, No tenderness to palpate, No edema - Neuro Neuro: Alert and oriented X 3, composition floor setter 2-12 intact, Normal speech Eye Opening: Spontaneous Motor: Obeys Commands Verbal: Oriented GCS Score: 15 - Psych Psych: Normal mood, Normal affect NIHSS - Time Time: 22:50 - Level of Consciousness Level of consciousness: (0) Alert, Keenly responsive LOC Questions: (0) Answers both Q's correct LOC Commands: (0) Performs both correctly - Gaze Best Gaze: (0) Normal - Visual Visual: (0) No loss - Facial Palsy Facial Palsy: (0) Normal, symmetrical movement - Motor Arms (both separate) Motor Arm (right): (0) No drift Motor Arm (left): (1) Drift - Motor Legs (both separate) Motor Leg (right): (0) No drift Motor Leg (left): (1) Drift - Limb Ataxia Limb Ataxia: (0) Absent - Sensory Sensory: (1) [id number] loss - Best Language Best Language: (0) No aphasia - Dysarthria Dysarthria: (0) Normal - Extinction and Inattention (formally neg Extinction and inattention: (0) No abnormality - Total Score/Results Total Score/Result: 3 Results - Vitals Vitals: Vital Signs - 24 hr 12/11/19 22:12 Temperature 36.6 C Heart Rate 91 Respiratory 17 Rate Blood Pressure 99/85 H O2 Saturation 100 Oxygen O2 Source Room air - EKG (time done) No standard instances Rate: Rate (enter#) (78) Rhythm: NSR Howe: Normal Intervals: Normal OK QRS: Normal Ischemia: Normal ST segments - Labs Labs: Laboratory Tests 12/11/19 12/11/19 12/11/19 22:50 22:50 22:50 WBC 4.9 RBC 3.64 L Hgb 12.2 Hct 37.5 MCV 103.0 H MCH 33.5 H MCHC 32.5 RDW 13.2 Plt Count 212 MPV 8.9 Neut # (Auto) 2.3 Lymph # (Auto) 2.0 [place] # (Auto) 0.4 Eos # (Auto) 0.2 Baso # (Auto) 0.0 Absolute Nucleated RBC 0.00 Nucleated RBC % 0.0 PT 11.2 INR 1.0 APTT 29.6 Sodium 133 L Potassium 3.6 Chloride 97 L Carbon Dioxide 26 Anion Gap 10.0 BUN 12 Creatinine 0.6 Estimated GFR (MDRD) 115 Glucose 102 H Calcium 10.1 Phosphorus Magnesium Total Bilirubin 1.0 AST 105 H ALT 116 H Alkaline Phosphatase 45 Total Protein 8.3 H Albumin 4.6 Globulin 3.7 Albumin/Globulin Ratio 1.2 Lipase 29 TSH Salicylates 12/11/19 12/11/19 22:50 22:50 WBC RBC Hgb Hct MCV MCH MCHC RDW Plt Count MPV Neut # (Auto) Lymph # (Auto) [place] # (Auto) Eos # (Auto) Baso # (Auto) Absolute Nucleated RBC Nucleated RBC % PT INR APTT Sodium Potassium Chloride Carbon Dioxide Anion Gap BUN Creatinine Estimated GFR (MDRD) Glucose Calcium Phosphorus 3.0 Magnesium 2.3 Total Bilirubin AST ALT Alkaline Phosphatase Total Protein Albumin Globulin Albumin/Globulin Ratio Lipase TSH 3.28 Salicylates < 6.0 - Rads (name of study) CTH Radiology: Prelim report reviewed, See rad report CTA head Radiology: Prelim report reviewed, See rad report CTA neck Radiology: Prelim report reviewed, See rad report CXR Radiology: Prelim report reviewed, See rad report PD MEDICAL DECISION MAKING - ED course Complexity details: reviewed results, re-evaluated patient, considered differential, d/w patient ED course: D/W neurology on-call at [facility] at approximately 10:55 PM, she recommends not giving tPA, as the deficits are too mild to justify risks of the medication (NIHSS is 3). I again d/w neurology (Dr. Guo) at [facility]; this was not after tests resulted including blood tests and CTH, CTA head and neck. On reexam, her deficits persist, although her LUE no longer exhibits drift. The LLE has same drift as on presentation. She also has diminished occupational physician on left and diminished plantarflexion and leg raise (iliopsoas strength) on left. She says she now has numbness/paresthesias on both sides of her face. Dr. Guo recommends admit for MRI in the morning, again recommends not giving tPA due to low NIHSS score and clinical picture not being strongly s/o CVA. D/W Dr. Argueta, accepts admission to [facility] - TPA CVA checklist Inclusion crititeria: positive: Sig neuro deficit, CT no bleed, Onset know < 4.5 hr Relative contraindications: positive: Too mild Departure - Departure Disposition: ED Place in Observation Clinical Impression: Weakness Condition: Good Discharge Date/Time: 12/12/19 01:00
[2019-12-11] MEDS ORDERED: IOVERSOL 320 100 ML VIAL IVP ONE ×2 (22:53→23:31)
[2019-12-11 22:55] LABS: BASOPHILS % (AUTO) 0.8 %; EOSINOPHILS # (AUTO) 0.2 10^3/uL (0.0-0.7); EOSINOPHILS % (AUTO) 3.5 %; HGB - HEMOGLOBIN 12.2 g/dL (12.0-16.0); LYMPHOCYTES % (AUTO) 40.2 %; MEAN CORPUSCULAR HEMOGLOBIN 33.5 pg (27.0-31.0); MEAN CORPUSCULAR HGB CONC 32.5 g/dL (32.0-36.0); MEAN PLATELET VOLUME 8.9 fL (7.9-10.8); MONOCYTES # (AUTO) 0.4 10^3/uL (0.0-1.0); NEUTROPHILS # (AUTO) 2.3 10^3/uL (1.5-6.6); NEUTROPHILS % (AUTO) 47.1 %; PLT - PLATELET COUNT 212 10^3/uL (130-450); RED BLOOD COUNT 3.64 10^6/uL (4.20-5.40); RED CELL DISTRIBUTION WIDTH 13.2 % (12.0-15.0); WHITE BLOOD COUNT 4.9 x10^3/uL (4.8-10.8)
[2019-12-11 23:01] LABS: PT - PROTHROMBIN TIME 11.2 secs (9.9-12.6)
[2019-12-11 23:08] LABS: PARTIAL THROMBOPLASTIN TIME 29.6 secs (24.9-33.3)
[2019-12-11 23:10] LABS: ALBUMIN 4.6 g/dL (3.2-5.5); ALBUMIN/GLOBULIN RATIO 1.2 (1.0-2.2); CALCIUM 10.1 mg/dL (8.5-10.3); CREATININE 0.6 mg/dL (0.4-1.0); TOTAL PROTEIN 8.3 g/dL (6.7-8.2)
--- NOTE | 2019-12-11 23:16 | CT Report ---
Reason: left weakness, numbness Procedure Date: 12/11/2019 Accession Number: [id number] / [id number] Procedure: CT - Head W/O Stroke Protocol CPT Code: Final Report FULL RESULT: EXAM: CT HEAD WITHOUT CONTRAST. EXAM DATE: 12/11/2019 11:05 PM. CLINICAL HISTORY: Left weakness, numbness. COMPARISON: None. TECHNIQUE: Multiaxial CT images were obtained from the foramen magnum to the vertex. Reformats: Sagittal and coronal. IV contrast: None. In accordance with CT protocol optimization, one or more of the following dose reduction techniques were utilized for this exam: automated exposure control, adjustment of mA and/or KV based on patient size, or use of iterative reconstructive technique. FINDINGS: Parenchyma: No intraparenchymal hemorrhage. No evidence of mass, midline shift, or CT findings of acute infarction. Oneil-white differentiation is distinct. Extraaxial Spaces: Normal for age. No subdural or epidural collections identified. Ventricles: Normal in size and position. Sinuses and Orbits: Imaged paranasal sinuses, orbits, and mastoids show no significant abnormality. Bones: No evidence of fracture or calvarial defect. IMPRESSION: 1. Normal head CT. 2. ASPECTS score is 10 on the right and 10 on the left. RADIA The critical test notification system was initiated by Dr. Lola Holder at 11:11 PM on 12/11/2019. The above critical test findings were discussed with Dr. Tian by Dr. Lola Holder at 11:14 PM on 12/11/2019.
[2019-12-11 23:35] LABS: MAGNESIUM 2.3 mg/dL (1.7-2.8); SALICYLATE < 6.0 mg/dL
--- NOTE | 2019-12-11 23:52 | CT Report ---
Reason: left numbness, weakness Procedure Date: 12/11/2019 Accession Number: [id number] / [id number] Procedure: CT - ANGIO NECK W CPT Code: Final Report FULL RESULT: EXAM: CT ANGIOGRAM HEAD AND NECK. CT SCAN HEAD WITH CONTRAST. EXAM DATE: 12/11/2019 11:23 PM. CLINICAL HISTORY: Left weakness, numbness. COMPARISON: HEAD W/O STROKE PROTOCOL 12/11/2019 11:03 PM. ANGIO NECK W 12/11/2019 11:12 PM. TECHNIQUE: Routine axial helical CTA imaging was performed from the aortic arch through the [place]. Routine axial CT imaging of the head was performed following contrast administration. Reconstructions: Routine multiplanar 3D MIP reconstructions. IV contrast: OPTIRAY 320. NASCET Criteria are used for stenosis measurements. In accordance with CT protocol optimization, one or more of the following dose reduction techniques were utilized for this exam: automated exposure control, adjustment of mA and/or KV based on patient size, or use of iterative reconstructive technique. FINDINGS: No abnormal brain parenchymal enhancement is seen. CT ANGIOGRAM EXTRACRANIAL CIRCULATION: The visualized arch is unremarkable. Great vessels are patent and unremarkable. Right Carotid: The common carotid, internal carotid, and external carotid arteries are widely patent. No dissection, significant atherosclerotic plaque, or calcification identified. Left Carotid: The common carotid, internal carotid, and external carotid arteries are widely patent. No dissection, significant atherosclerotic plaque, or calcification identified. Vertebrals: The vertebrobasilar system shows no stenosis, dissection, aneurysm, or significant atherosclerotic disease. The vertebral arteries are codominant. CT ANGIOGRAM INTRACRANIAL CIRCULATION: The internal carotid arteries are patent from the superior cervical to the supraclinoid portions. There is no atherosclerotic plaque in the carotid siphons. The bilateral A1, A2, M1, M2 segments are patent. An anterior communicating artery is not seen. In the posterior circulation, the bilateral V4 segments are patent. The bilateral PICAs are patent. The basilar artery is widely patent throughout its course to the terminus. There is normal contrast opacification in the superior cerebellar and posterior cerebral arteries. Posterior communicating arteries are not seen. The dural venous sinuses are patent. Other: The visualized bones, soft tissues, and lung apices are unremarkable. IMPRESSION: 1. No abnormal brain parenchymal enhancement. 2. Patent dural venous sinuses. 3. Normal CTA of the head and neck. RADIA The call report notification system was initiated by Dr. Lola Holder at 11:44 PM on 12/11/2019. The above call report findings were discussed with Dr. Tian by Dr. Lola Holder at 11:47 PM on 12/11/2019.
[2019-12-12] MEDS ORDERED: oxyCODONE 5 MG TABLET PO PRN (00:14)
[2019-12-12] MEDS ORDERED: ZOLPIDEM 5 MG TABLET PO PRN (00:14)
[2019-12-12] MEDS ORDERED: ONDANSETRON 4 MG/2 ML VIAL IVP PRN (00:14)
[2019-12-12] MEDS ORDERED: SODIUM CHLORIDE FLUSH 0.9% 10 ML SYRINGE IVP PRN (00:14)
[2019-12-12] MEDS ORDERED: PROCHLORPERAZINE 10 MG/2 ML VIAL IVP PRN (00:14)
--- NOTE | 2019-12-12 00:20 | HISTORY & PHYSICAL EXAMINATION ---
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 She states she was in her normal state of health today. She had put the children to bed and was watching TV at 8pm when she noticed a funny feeling over her left cheek. She states it felt as she does after going to the dentist and receiving numbing medication but she states she could still feel her face. She felt as though she had to drool but there was no drool. She states that she kept itching her face but the feeling began to spread over the entire left side of her face. She states that it then spread into her left arm. She denies feeling weakness or having a facial droop or trouble with her speech. She began Googling her symptoms at this point. She was on high alert as her brother in law had just been hospitalized with a stroke the other day at the age of 29. She states at this point she called her mother in law to take her kids for the evening and then called 911. By the time paramedics arrived at the scene she states that numbness had spread to her left leg. She denies any recent illness, fevers, stiff neck or focal weakness. She denies any history of previous neurological symptoms. She does state that over the last month she has noticed some blurring of her vision but it has been mild. She states she figured it was related to her lasik surgery from several years ago as she had been told that her vision may start to decline. One presentation to the ER patients vitals were stable and she was not in any distress. She underwent routine lab work which did reveal an elevated MCV, mildly elevated LFTs and a low Na but were otherwise unremarkable. She was examined by the ER doctor who found that the patient had decreased sensation on the left side of her face, arms and legs. He also found that she had left upper and lower extremity drift as well as muscle weakness of the left side. He scored her to have a NHSS of 3. He did call Neurology from [facility] after the patients CT and CTA of the head and neck were unremarkable. [facility] Neurology advised against TPA as patients symptoms were very mild. They did advise that patient should be placed in observation and get an MRI. There was no need to transfer the patient. She was placed in observation. 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 She has 3 children all under the age of 4. 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 She was drinking heavily and admits to being an alcoholic until just this past week when she cut down and today was the first day she has gone without any drinks. She denies any tobacco abuse or other illicit drug use. - Substance History Use: Uses substance without health or social issues: Alcohol Abuse: Recurrent use of substance despite neg consequences: Alcohol Dependence: Experiences withdrawal or developed tolerances: Alcohol - POLST Patient has POLST: Yes POLST Status: Full Code Meds/Allgy - Home Medications Home Medications: Ambulatory Orders Medication Instructions Recorded Confirmed Naltrexone HCl 50 mg PO 12/11/19 - Allergies Allergies/Adverse Reactions: Allergies Allergy/AdvReac Type Severity Reaction Status Date / Time No Known Drug Allergies Allergy Verified 12/11/19 22:16 Review of Systems - Constitutional Constitutional: denies: Fatigue, Fever, Chills, Malaise, Weakness, Poor appetite, Diaphoresis, Night sweats, Weight gain, Weight loss - Eyes Eyes: reports: Blurred vision. denies: Spots in vision, Field loss, Vision loss, Dipolpia - Ears, Nose & Throat Ears, Nose & Throat: denies: Ear pain, Hearing loss, Hearing aids, Nasal discharge, Nasal congestion, Sore throat, Hoarseness - Cardiovascular Cariovascular: denies: Palpitations, Chest pain, Edema, Lightheadedness, Syncope, Exertional dyspnea, Orthopnea - Respiratory Respiratory: denies: Cough, Wheezing, Hemoptysis, Orthopnea, SOB at rest, SOB with exertion - Gastrointestinal Gastrointestinal: denies: Abdominal pain, Abdominal distention, Constipation, Diarrhea, Change in bowel habits, Nausea, Vomiting, Poor appetite - Genitourinary Genitourinary: denies: Dysuria, Frequency, Urgency, Hematuria, Flank pain - Musculoskeletal Musculoskeletal: denies: Muscle pain, Back pain, Muscle aches, Stiffness, Limited range of motion, Muscle weakness, Joint pain, Joint swelling - Integumentary Integumentary: denies: Rash, Pruritis, Lesions, Dryness - Neurological Neurological: reports: Focal weakness, Numbness. denies: General weakness, Headache, Dizziness, Incoordination, Slurred speech - Psychiatric Psychiatric: denies: Depression, Anxiety, Suicidal, Delusions, Hallucinations, Homicidal - Endocrine Endocrine: denies: Polyuria, Polydypsia, Polyphagia Prior Level of Functionality: Completely independent Exam - Vital Signs Reviewed Vital Signs: Yes Vital Signs: Vital Signs x48h Temp Pulse Resp BP Pulse Ox 12/11/19 22:12 36.6 C 91 17 99/85 H 100 - Physical Exam General Appearance: positive: No acute distress, Alert, Anxious Eyes Bilateral: positive: Normal inspection, PERRL, EOMI, No lid inflammation, Conjunctivae nml, No scleral icterus ENT: positive: ENT inspection nml, Pharynx nml, No signs of dehydration. negative: Purulent nasal drainage, Pharyngeal erythema, Oral lesions Neck: positive: Nml inspection, Thyroid nml, No JVD, Trachea midline. negative: Thyromegaly, Lymphadenopathy (R), Lymphadenopathy (L), Stiff neck, Carotid bruit, Tracheal deviation Respiratory: positive: Chest non-tender, No respiratory distress, Breath sounds nml. negative: Wheezes, Rales, Rhonchi Cardiovascular: positive: Regular rate & rhythm, No murmur, No gallop Peripheral Pulses: positive: 2+ Abdomen: positive: Non-tender, No organomegaly, Nml bowel sounds, No distention. negative: Guarding, Rebound, Hepatomegaly, Splenomegaly Back: positive: Nml inspection. negative: CVA tenderness (R), CVA tenderness (L) Skin: positive: Color nml, No rash, Warm, Dry. negative: Cyanosis, Diaphoresis, Pallor, Skin rash Extremities: positive: Non-tender, Full ROM, Nml appearance, No pedal edema Neurologic/Psychiatric: positive: Oriented x3, CN's nml (2-12), Mood/affect nml, Weakness (Left upper and lower extremity weakness. 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 Left leg witho ut sensory loss), Other (Left upper and lower extremity drift.). negative: Facial droop, Slurred/abnml speech Conclusion/Plan - Problem List (1) Left sided numbness Conclusion/Plan: Unlikely to be CVA given age and risk factors however patient found to have localized left sided weakness as well as decreased sensations on the left CT head and CTA of the head negative Other differential to consider is B12 deficiency given history of alcohol abuse and elevated LFTs, autoimmune process such as MS, psychosomatic given severe stress at home with raising 3 children on her own, being deployed for one year and brother in law having been diagnosed with a stroke at 30 years old yesterday, seizures unlikely given lack of signs, meningitis or encephalitis which are very unlikely given lack of infectious signs We will monitor the patient in observation Neuro checks Tele monitoring MRI Echo ASA, Lipitor Neuro was consulted by ER MD and recommended observation and MRI. If further assistance needed we will contact Neuro at [facility]. If her symptoms persist with no definitive diagnosis she will need to follow up with Neuro. (2) Alcohol abuse Conclusion/Plan: Recently quit on naltrexone at home Last drink 2 days ago Will need to monitor for signs of withdrawal LFTs mildly elevated but not in usual ratio for alcoholic hepatitis Check B12 and folate given elevated MCV Give IVFs Will hold off on CIWA for now as patient appears stable (3) Elevated LFTs Conclusion/Plan: Likely secondary to alcohol abuse Will monitor (4) Hyponatremia Conclusion/Plan: Appears to be hypovolemic hyponatremia secondary to alcohol abuse Give IVFs Monitor Na - Lab Results Lab results reviewed: Yes Fish Bones: 12/11/19 22:50 12/11/19 22:50 Other Lab Results: Laboratory Results - last 24 hr 12/11/19 12/11/19 12/11/19 22:50 22:50 22:50 WBC 4.9 RBC 3.64 L Hgb 12.2 Hct 37.5 MCV 103.0 H MCH 33.5 H MCHC 32.5 RDW 13.2 Plt Count 212 MPV 8.9 Neut # (Auto) 2.3 Lymph # (Auto) 2.0 [place] # (Auto) 0.4 Eos # (Auto) 0.2 Baso # (Auto) 0.0 Absolute Nucleated RBC 0.00 Nucleated RBC % 0.0 PT 11.2 INR 1.0 APTT 29.6 Sodium 133 L Potassium 3.6 Chloride 97 L Carbon Dioxide 26 Anion Gap 10.0 BUN 12 Creatinine 0.6 Estimated GFR (MDRD) 115 Glucose 102 H Calcium 10.1 Phosphorus Magnesium Total Bilirubin 1.0 AST 105 H ALT 116 H Alkaline Phosphatase 45 Total Protein 8.3 H Albumin 4.6 Globulin 3.7 Albumin/Globulin Ratio 1.2 Lipase 29 TSH Urine Color Urine Clarity Urine pH Ur Specific [place] Urine Protein Urine Glucose (UA) Urine Ketones Urine Occult Blood Urine Nitrite Urine Bilirubin Urine Urobilinogen Ur Leukocyte Esterase Ur Microscopic Review Urine Culture Comments Salicylates Urine Opiates Screen Ur Oxycodone Screen Urine Methadone Screen Ur Propoxyphene Screen Ur Barbiturates Screen Ur Tricyclics Screen Ur Phencyclidine Scrn Ur Amphetamine Screen U Methamphetamines Scrn U Benzodiazepines Scrn Urine Cocaine Screen U Cannabinoids Screen 12/11/19 12/11/19 12/12/19 22:50 22:50 00:22 WBC RBC Hgb Hct MCV MCH MCHC RDW Plt Count MPV Neut # (Auto) Lymph # (Auto) [place] # (Auto) Eos # (Auto) Baso # (Auto) Absolute Nucleated RBC Nucleated RBC % PT INR APTT Sodium Potassium Chloride Carbon Dioxide Anion Gap BUN Creatinine Estimated GFR (MDRD) Glucose Calcium Phosphorus 3.0 Magnesium 2.3 Total Bilirubin AST ALT Alkaline Phosphatase Total Protein Albumin Globulin Albumin/Globulin Ratio Lipase TSH 3.28 Urine Color YELLOW Urine Clarity CLEAR Urine pH 7.5 Ur Specific [place] <=1.005 Urine Protein NEGATIVE Urine Glucose (UA) NEGATIVE Urine Ketones 15 H Urine Occult Blood NEGATIVE Urine Nitrite NEGATIVE Urine Bilirubin NEGATIVE Urine Urobilinogen 0.2 (NORMAL) Ur Leukocyte Esterase NEGATIVE Ur Microscopic Review NOT INDICATED Urine Culture Comments NOT INDICATED Salicylates < 6.0 Urine Opiates Screen NEGATIVE Ur Oxycodone Screen NEGATIVE Urine Methadone Screen NEGATIVE Ur Propoxyphene Screen NEGATIVE Ur Barbiturates Screen NEGATIVE Ur Tricyclics Screen NEGATIVE Ur Phencyclidine Scrn NEGATIVE Ur Amphetamine Screen NEGATIVE U Methamphetamines Scrn NEGATIVE U Benzodiazepines Scrn NEGATIVE Urine Cocaine Screen NEGATIVE U Cannabinoids Screen NEGATIVE - Diagnostic Imaging Results Diagnostic Imaging Results: positive: Final report reviewed Diagnostic Imaging Results Comments: CT Head, CTA Head and Neck and Chest Xray are all normal. - EKG Results EKG Interpreted Independently: Yes Core Measures - Anticipated LOS I expect patient to be DC'd or transferred within 96 hours.: Yes - DVT/VTE - Prophylaxis VTE/DVT Device ordered at admit?: Yes Not Ordered - Low Risk: Low Risk
[2019-12-12 00:32] LABS: BILIRUBIN,URINE NEGATIVE (NEGATIVE); GLUCOSE, URINE (UA) NEGATIVE (NEGATIVE); KETONES,URINE (UA) 15 mg/dL (NEGATIVE); LEUKOCYTE ESTERASE, URINE NEGATIVE (NEGATIVE); MUDS CUTOFF CONCENTRATIONS CUTOFF CONC BELOW:; NITRITE,URINE NEGATIVE (NEGATIVE); OCCULT BLOOD,URINE NEGATIVE (NEGATIVE); PH,URINE 7.5 PH (5.0-7.5); PROTEIN,URINE NEGATIVE (NEGATIVE); UROBILINOGEN,URINE 0.2 (NORMAL) E.U./dL (NORMAL)
[2019-12-12 00:33] LABS: CLARITY,URINE CLEAR (CLEAR)
--- NOTE | 2019-12-12 00:33 | XRAY Report ---
Reason: left-sided weakness,numbness Procedure Date: 12/11/2019 Accession Number: [id number] / [id number] Procedure: XR - Chest 2 View X-Ray CPT Code: 10865 Final Report FULL RESULT: EXAM: CHEST RADIOGRAPHY EXAM DATE: 12/11/2019 11:54 PM. CLINICAL HISTORY: Left-sided weakness, numbness. COMPARISON: None. TECHNIQUE: 2 views. FINDINGS: Lungs/Pleura: No focal opacities evident. No pleural effusion. No pneumothorax. Normal volumes. Mediastinum: Heart and mediastinal contours are unremarkable. Other: None. IMPRESSION: Normal 2-view chest radiography. RADIA
[2019-12-12 00:43] LABS: AMPHETAMINE SCREEN,URINE NEGATIVE (NEGATIVE); BENZODIAZEPINES SCREEN, URINE NEGATIVE (NEGATIVE); COCAINE SCREEN URINE NEGATIVE (NEGATIVE); METHADONE SCREEN, URINE NEGATIVE (NEGATIVE); METHAMPHETAMINES SCREEN, URINE NEGATIVE (NEGATIVE); OPIATE SCREEN, URINE NEGATIVE (NEGATIVE); OXYCODONE SCREEN, URINE NEGATIVE (NEGATIVE); PROPOXYPHENE SCREEN, URINE NEGATIVE (NEGATIVE); TRICYCLIC ANTIDEPRESSANT,URINE NEGATIVE (NEGATIVE)
[2019-12-12] MEDS ORDERED: ASPIRIN 325 MG TABLET PO SCH (01:00)
[2019-12-12] MEDS: SODIUM CHLORIDE FLUSH 0.9% 10 ML SYRINGE IVP SCH ×3 (01:07→16:42)
[2019-12-12] MEDS: SODIUM CHLORIDE 0.9% 1,000 ML IV SCH ×3 (01:07→21:43)
[2019-12-12] MEDS: ACETAMINOPHEN 325 MG TABLET PO PRN ×3 (01:10→16:42)
[2019-12-12 05:34] LABS: BASOPHILS % (AUTO) 0.7 %; EOSINOPHILS # (AUTO) 0.2 10^3/uL (0.0-0.7); EOSINOPHILS % (AUTO) 3.7 %; HGB - HEMOGLOBIN 11.6 g/dL (12.0-16.0); LYMPHOCYTES # (AUTO) 1.7 10^3/uL (1.5-3.5); MEAN CORPUSCULAR VOLUME 103.1 fL (81.0-99.0); MEAN PLATELET VOLUME 9.4 fL (7.9-10.8); MONOCYTES # (AUTO) 0.3 10^3/uL (0.0-1.0); MONOCYTES % (AUTO) 6.3 %; NEUTROPHILS # (AUTO) 2.1 10^3/uL (1.5-6.6); NEUTROPHILS % (AUTO) 49.3 %; PLT - PLATELET COUNT 200 10^3/uL (130-450); RED BLOOD COUNT 3.51 10^6/uL (4.20-5.40); RED CELL DISTRIBUTION WIDTH 13.1 % (12.0-15.0); WHITE BLOOD COUNT 4.3 x10^3/uL (4.8-10.8)
[2019-12-12 05:39] LABS: PT - PROTHROMBIN TIME 11.5 secs (9.9-12.6)
[2019-12-12 05:47] LABS: ALBUMIN 4.3 g/dL (3.2-5.5); ALBUMIN/GLOBULIN RATIO 1.3 (1.0-2.2); CALCIUM 9.2 mg/dL (8.5-10.3); CREATININE 0.6 mg/dL (0.4-1.0); TOTAL PROTEIN 7.5 g/dL (6.7-8.2)
[2019-12-12 06:13] LABS: FOLATE 9.77 ng/mL (5.90 - >24.8)
[2019-12-12] MEDS: FAMOTIDINE 20 MG TABLET PO SCH ×2 (08:50→21:07)
[2019-12-12] MEDS: ASPIRIN EC 81 MG TABLET PO SCH (08:50)
[2019-12-12] MEDS ORDERED: LORazepam 2 MG/ML VIAL IVP ONE (09:00)
[2019-12-12] MEDS ORDERED: THIAMINE INJ 100 MG in SODIUM CHLORIDE 0.9% 50 ML IV SCH (10:00)
[2019-12-12 11:13] LABS: HCG UR QUAL NEGATIVE
[2019-12-12] MEDS: THIAMINE 100 MG TABLET PO SCH (11:56)
[2019-12-12] MEDS: PRENATAL VITAMIN TABLET PO SCH (11:56)
--- NOTE | 2019-12-12 12:43 | PHARMACY PROGRESS NOTE ---
- Best Possible Medication History Admit Date and Time: 12/12/19 0014 Processed by: Pharmacy Medication History completed: Yes Secondary Source(s): Pharmacy records, Insurance records As the person ultimately responsible for medication therapy, providers are able to order a medication from an existing home medication list in [facility] via the "Reconcile Routine" prior to Confirmation of that medication by customer support consultant. Such practice is discouraged except when the physician, in their clinical judgment, deems that a medical need exists for a medication without regard to previous use.
[2019-12-12] MEDS ORDERED: LORazepam 2 MG/ML VIAL IVP PRN (14:49)
[2019-12-12 15:21] LABS: BASOPHILS % (AUTO) 0.8 %; EOSINOPHILS # (AUTO) 0.1 10^3/uL (0.0-0.7); EOSINOPHILS % (AUTO) 2.3 %; HGB - HEMOGLOBIN 12.3 g/dL (12.0-16.0); LYMPHOCYTES # (AUTO) 1.3 10^3/uL (1.5-3.5); LYMPHOCYTES % (AUTO) 27.3 %; MEAN CORPUSCULAR HEMOGLOBIN 34.3 pg (27.0-31.0); MEAN CORPUSCULAR HGB CONC 32.5 g/dL (32.0-36.0); MEAN CORPUSCULAR VOLUME 105.6 fL (81.0-99.0); MEAN PLATELET VOLUME 9.3 fL (7.9-10.8); MONOCYTES # (AUTO) 0.4 10^3/uL (0.0-1.0); MONOCYTES % (AUTO) 7.9 %; NEUTROPHILS # (AUTO) 2.9 10^3/uL (1.5-6.6); NEUTROPHILS % (AUTO) 61.5 %; PLT - PLATELET COUNT 216 10^3/uL (130-450); RED BLOOD COUNT 3.59 10^6/uL (4.20-5.40); RED CELL DISTRIBUTION WIDTH 13.2 % (12.0-15.0); WHITE BLOOD COUNT 4.8 x10^3/uL (4.8-10.8)
--- NOTE | 2019-12-12 15:43 | MRI Report ---
Reason: Left sided weakness and numbness Procedure Date: 12/12/2019 Accession Number: [id number] / [id number] Procedure: MRI - Brain W/O CPT Code: Final Report FULL RESULT: MRI BRAIN WITHOUT CONTRAST INDICATION: 34-year-old female with left-sided weakness. TECHNIQUE: 1. Sagittal T1 and coronal fat saturated T2. 2. Axial T1 3D, FLAIR, T2, T2* GRE and DWI. COMPARISON: Head CT 12/11/2019. FINDINGS: Ventricular size is normal. The signal intensity of the cortex and white matter appears normal throughout. Flow voids are demonstrated in the main intracranial arteries. No abnormal diffusion restriction is demonstrated. There is no evidence of acute or chronic hemorrhage on the T2* GRE sequence. No abnormal extra-axial fluid collection. No mass-effect or midline shift. Of note, there is mild cerebellar tonsillar ectopia. The tonsils descend into the foramen magnum. There is minimal descent of the right tonsil below the plane of the foramen magnum. However, there is no measurable descent of the left tonsil below the plane of the foramen magnum and both tonsils have a normal, rounded configuration. The findings do not meet criteria for diagnosis of a Chiari I malformation. Limited assessment of the orbits reveals no gross pathology. Mucosal thickening is demonstrated scattered throughout the maxillary and ethmoid air cells. The paranasal sinuses are otherwise clear. No air-fluid level is demonstrated. No mastoid or middle ear effusion. IMPRESSION: Unremarkable, unenhanced brain MRI. In particular, there is no evidence of infarction, hemorrhage or other acute brain pathology. Comment: No potential explanation for left-sided weakness has been demonstrated.
[2019-12-12] MEDS ORDERED: ATORVASTATIN 40 MG TABLET PO SCH (21:00)
[2019-12-12] MEDS: oxyCODONE 5 MG TABLET PO PRN (21:07)
[2019-12-13] MEDS: SODIUM CHLORIDE FLUSH 0.9% 10 ML SYRINGE IVP SCH ×2 (01:46→08:12)
[2019-12-13 05:25] LABS: BASOPHILS # (AUTO) 0.1 10^3/uL (0.0-0.1); EOSINOPHILS # (AUTO) 0.2 10^3/uL (0.0-0.7); EOSINOPHILS % (AUTO) 3.1 %; HGB - HEMOGLOBIN 11.3 g/dL (12.0-16.0); LYMPHOCYTES # (AUTO) 2.1 10^3/uL (1.5-3.5); LYMPHOCYTES % (AUTO) 42.8 %; MEAN CORPUSCULAR HEMOGLOBIN 33.2 pg (27.0-31.0); MEAN CORPUSCULAR HGB CONC 31.4 g/dL (32.0-36.0); MEAN CORPUSCULAR VOLUME 105.9 fL (81.0-99.0); MEAN PLATELET VOLUME 9.6 fL (7.9-10.8); MONOCYTES # (AUTO) 0.4 10^3/uL (0.0-1.0); MONOCYTES % (AUTO) 7.2 %; NEUTROPHILS # (AUTO) 2.2 10^3/uL (1.5-6.6); NEUTROPHILS % (AUTO) 45.5 %; PLT - PLATELET COUNT 187 10^3/uL (130-450); WHITE BLOOD COUNT 4.9 x10^3/uL (4.8-10.8)
[2019-12-13 05:37] LABS: ALBUMIN 3.8 g/dL (3.2-5.5); ALBUMIN/GLOBULIN RATIO 1.4 (1.0-2.2); BILIRUBIN,TOTAL 1.1 mg/dL (0.2-1.0); CALCIUM 8.8 mg/dL (8.5-10.3); CREATININE 0.6 mg/dL (0.4-1.0); TOTAL PROTEIN 6.6 g/dL (6.7-8.2)
[2019-12-13] MEDS: SODIUM CHLORIDE 0.9% 1,000 ML IV SCH (06:21)
[2019-12-13] MEDS: PRENATAL VITAMIN TABLET PO SCH (08:11)
[2019-12-13] MEDS: ASPIRIN EC 81 MG TABLET PO SCH (08:11)
[2019-12-13] MEDS: FAMOTIDINE 20 MG TABLET PO SCH (08:12)
[2019-12-13] MEDS: THIAMINE 100 MG TABLET PO SCH (08:27)
[2019-12-13] MEDS: oxyCODONE 5 MG TABLET PO PRN ×2 (12:16→16:29)
[2019-12-13] MEDS ORDERED: SUMAtriptan 25 MG TABLET PO ONE (14:30)
--- NOTE | 2019-12-13 15:25 | Discharge Plan ---
Discharge Plan Problem Reviewed?: Yes Disposition: Home, Self Care Condition: Stable Prescriptions: Aspirin Chewable [[facility] Aspirin] 81 mg PO DAILY #15 tablet Atorvastatin [Lipitor] 20 mg PO DAILY #30 tablet Naltrexone HCl 50 mg PO DAILY #10 tablet Vitamin [Trinatal Rx 1] 1 tab PO DAILYWM #15 tablet SUMAtriptan [Imitrex] 25 mg PO Q6H PRN #10 tablet PRN Reason: Headache Thiamine [Vitamin B-1] 100 mg PO DAILY #15 tablet Diet: Regular Activity Restrictions: Activity as Tolerated Shower Restrictions: No (fall precaution) Instruction Topics: Sumatriptan tablets, COVID-19 [facility], COVID-19 [facility] Department Statement, Naltrexone tablets, Aspirin ASA chewable tablets, Atorvastatin tablets Health Concerns: stroke, migraines headache, alcoholism, Covid 19 Plan of Treatment: your test studies for stroke are unremarkable, and your symptoms are resolved. you are prescribed lower dosage of Aspirin and Lipitor. For your migraines headache, imitrex is prescribed for you. advise you gradually reduce alcohol intake and eventually quit alcohol. and Vitamin B1 are prescribed for you. you ask for your home Naltrexone, and is prescribed for you. Your Covid 19 test result is still not coming back yet. advise you followup [facility] guideline for isolation precaution. hospital will call you as soon as hospital has your test result. Care Goals: stabilization and improvement/resolved of your medical conditions Assessment: discussed with you the care plan, you understood and agreed. Additional Instructions or Follow Up instructions: you may followup your PCP in one week. Should your symptoms return or worsen, you may present ER or call 911 for help. Follow-Up Care: Outpatient Rehab - PT, Outpatient Rehab - OT No Smoking: If you smoke, Please STOP! Call for help. Follow-up with: Sandee Orta MD [Primary Care Provider] -
--- NOTE | 2019-12-13 15:58 | DISCHARGE SUMMARY ---
Discharge Summary Admit Date: 12/12/19 Discharge Date: 12/13/19 Discharging Provider: Rayo Rizzo Primary Care Provider: Dr Orta Condition at Discharge: Stable Discharge Disposition: 01 Home, Self Care Discharge Facility Name: home - DIAGNOSES Admission Diagnoses: (1) Left sided numbness (2) Alcohol abuse (3) Elevated LFTs (4) Hyponatremia Discharge Diagnoses with Status of Each Condition: (1) Left sided numbness resolved. pt denies any more focal neurological deficits. PT/OT evaluated and treated pt. out-pt PT/OT was recommended by PT/OT. all image studies including MRI, CT, CTA of the head and the neck, echo are all unremarkable. You are prescribed low dosage of aspirin and Lipitor. (2) Alcohol abuse Advise you quitted alcohol gradually eventually quit alcohol. you are prescriptive and vitamin B1. you asked for home meds Naltrexone (3) Elevated LFTs Improved and closely to normal. It is likely from alcohol abuse (4) Hyponatremia resolved (5)migraines headache stable and resolved. You asked prescription medication Imitrex for you migrating headache. - HPI History of Present Illness: refer from Dr. 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 She states she was in her normal state of health today. She had put the children to bed and was watching TV at 8pm when she noticed a funny feeling over her left cheek. She states it felt as she does after going to the dentist and receiving numbing medication but she states she could still feel her face. She felt as though she had to drool but there was no drool. She states that she kept itching her face but the feeling began to spread over the entire left side of her face. She states that it then spread into her left arm. She denies feeling weakness or having a facial droop or trouble with her speech. She began Googling her symptoms at this point. She was on high alert as her brother in law had just been hospitalized with a stroke the other day at the age of 29. She states at this point she called her mother in law to take her kids for the evening and then called 911. By the time paramedics arrived at the scene she states that numbness had spread to her left leg. She denies any recent illness, fevers, stiff neck or focal weakness. She denies any history of previous neurological symptoms. She does state that over the last month she has noticed some blurring of her vision but it has been mild. She states she figured it was related to her lasik surgery from several years ago as she had been told that her vision may start to decline. One presentation to the ER patients vitals were stable and she was not in any distress. She underwent routine lab work which did reveal an elevated MCV, mildly elevated LFTs and a low Na but were otherwise unremarkable. She was examined by the ER doctor who found that the patient had decreased sensation on the left side of her face, arms and legs. He also found that she had left upper and lower extremity drift as well as muscle weakness of the left side. He scored her to have a NHSS of 3. He did call Neurology from [facility] after the patients CT and CTA of the head and neck were unremarkable. [facility] Neurology advised against TPA as patients symptoms were very mild. They did advise that patient should be placed in observation and get an MRI. There was no need to transfer the patient. She was placed in observation. - HOSPITAL COURSE Hospital Course: pt was admitted for left numbness and left side upper an lower extremities weakness. pt's symptoms were resolved after treated in hospital. her image studies MRI, CTA of head, CTA of neck, ECHO are all unremarkable. PT/OT evaluate and treated pt. pt also developed migraines headache. after pt was treated with imitrex, her symptoms were resolved. For Covid 19 we tested you on yesterday but unfortunately this did not have result on today. we will call you of the results as soon as we have your test result. please continue take for isolation precaution according to [facility] for the Covid 19 until we have result for you. I also gave the [facility] guideline of Covid 19 to you hospital course is as the below. (1) Left sided numbness resolved. pt denies any more focal neurological deficits. PT/OT evaluated and treated pt. out-pt PT/OT was recommended by PT/OT. all image studies including MRI, CT, CTA of the head and the neck, echo are all unremarkable. You are prescribed low dosage of aspirin and Lipitor. (2) Alcohol abuse Advise you quitted alcohol gradually eventually quit alcohol. you are prescriptive and vitamin B1. you asked for home meds Naltrexone (3) Elevated LFTs Improved and closely to normal. It is likely from alcohol abuse (4) Hyponatremia resolved (5)migraines headache stable and resolved. You asked prescription medication Imitrex for you migrating headache. - ALLERGIES Allergies/Adverse Reactions: Allergies Allergy/AdvReac Type Severity Reaction Status Date / Time No Known Drug Allergies Allergy Verified 12/11/19 22:16 - MEDICATIONS Home Medications: Ambulatory Orders Medication Instructions Recorded Confirmed Aspirin Chewable [[facility] 81 mg PO DAILY #15 tablet 12/13/19 Aspirin] Atorvastatin [Lipitor] 20 mg PO DAILY #30 tablet 12/13/19 Naltrexone HCl 50 mg PO DAILY #10 tablet 12/13/19 Vitamin [Trinatal Rx 1] 1 tab PO DAILYWM #15 tablet 12/13/19 SUMAtriptan [Imitrex] 25 mg PO Q6H PRN #10 tablet 12/13/19 Thiamine [Vitamin B-1] 100 mg PO DAILY #15 tablet 12/13/19 - PHYSICAL EXAM AT DISCHARGE General Appearance: positive: No acute distress, Alert. negative: Lethargic Eyes Bilateral: positive: Normal inspection, PERRL, No lid inflammation ENT: positive: ENT inspection nml, No signs of dehydration. negative: Purulent nasal drainage Neck: positive: Nml inspection, Thyroid nml, No JVD, Trachea midline. negative: Thyromegaly, Stiff neck, Tracheal deviation Respiratory: positive: Chest non-tender, No respiratory distress, Breath sounds nml. negative: Wheezes, Rales, Rhonchi Cardiovascular: positive: Regular rate & rhythm, No murmur, No gallop. negative: Irregularly irregular, Extrasystoles, Tachycardia, Bradycardia, JVD present, Systolic murmur, Diastolic murmur Peripheral Pulses: positive: 2+ Abdomen: positive: Non-tender, No organomegaly, Nml bowel sounds, No distention. negative: Tenderness, Guarding, Rebound Back: positive: Nml inspection. negative: CVA tenderness (R), CVA tenderness (L) Skin: positive: Color nml, No rash, Warm, Dry. negative: Cyanosis, Diaphoresis, Pallor Extremities: positive: Non-tender, Full ROM, Nml appearance. negative: Calf tenderness, Lissa's sign/cords Neurologic/Psychiatric: positive: Oriented x3, Motor nml, Sensation nml, Mood/affect nml. negative: Weakness, Sensory loss, Facial droop, Slurred/abnml speech, Depressed mood/affect - LABS Result Diagrams: 12/13/19 04:50 12/13/19 04:50 - FOLLOW UP Follow Up: your test studies for stroke are unremarkable, and your symptoms are resolved. you are prescribed lower dosage of Aspirin and Lipitor. For your migraines headache, imitrex is prescribed for you. advise you gradually reduce alcohol intake and eventually quit alcohol. and Vitamin B1 are prescribed for you. you ask for your home Naltrexone, and is prescribed for you. Your Covid 19 test result is still not coming back yet. advise you followup [place] state guideline for isolation precaution. hospital will call you as soon as hospital has your test result. you may followup your PCP in one week. Should your symptoms return or worsen, y ou may present ER or call 911 for help. - TIME SPENT Time Spent in Discharge (Minutes): 30
[2019-12-13 16:20] VITALS: BP 128/66
== END 2019-12-13 17:59 | disposition home or self-care (01) ==
LOC: EDUNIT# → ED 22:08 → MS2 12-12 00:14
PROVIDERS: ADMIT Internal Medicine; ATTEND Nurse Practitioner Gerontology
DX: R20.0 Anesthesia of skin (principal); R53.1 Weakness; F10.20 Alcohol dependence, uncomplicated; R79.89 Other specified abnormal findings of blood chemistry; E87.1 Hypo-osmolality and hyponatremia; G43.909 Migraine, unspecified, not intractable, without status migrainosus; F43.9 Reaction to severe stress, unspecified; Z20.828 Contact with and (suspected) exposure to other viral communicable diseases
CPT/HCPCS: 36415; 70496; 70498; 70551; 71046; 80053; 80329; 81003; 81025; 82607; 82746; 83690; 83735; 84100; 85025; 85610; 85730; 87635; 93005; 93306; 96361; 96374; 97110; 97162; 97166; 97530; 99285; A9270; G0378; J2060; Q9967; 70450; 80306; 81001; 81599; 84443; 87086

== ENCOUNTER 2020-08-06 16:35 | Outpatient (CLI) | payer OTHER | END 2020-08-06 16:36 | disposition home or self-care (01) | LOC: COV 16:35 | PROVIDERS: ATTEND Family Medicine | DX: R50.9 Fever, unspecified (principal); Z20.828 Contact with and (suspected) exposure to other viral communicable diseases; R05 Cough; R06.02 Shortness of breath; M79.10 Myalgia, unspecified site; R53.83 Other fatigue; R09.81 Nasal congestion; R11.10 Vomiting, unspecified; J02.9 Acute pharyngitis, unspecified ==

== ENCOUNTER 2021-08-28 14:16 | Outpatient (CLI) | payer OTHER | END 2021-08-28 14:17 | disposition critical access hospital (66) | LOC: EMS 14:16 | DX: F41.9 Anxiety disorder, unspecified (principal) | CPT/HCPCS: A0425; A0429 ==

== ENCOUNTER 2021-08-28 14:37 | Emergency (ER) | payer OTHER ==
[2021-08-28 15:43] LABS: BASOPHILS % (AUTO) 0.4 %; EOSINOPHILS # (AUTO) 0.1 10^3/uL (0.0-0.7); EOSINOPHILS % (AUTO) 3.1 %; HCT - HEMATOCRIT 38.7 % (37.0-47.0); HGB - HEMOGLOBIN 13.2 g/dL (12.0-16.0); LYMPHOCYTES # (AUTO) 0.8 10^3/uL (1.5-3.5); LYMPHOCYTES % (AUTO) 16.7 %; MEAN CORPUSCULAR HEMOGLOBIN 35.5 pg (27.0-31.0); MEAN CORPUSCULAR HGB CONC 34.1 g/dL (32.0-36.0); MEAN PLATELET VOLUME 9.4 fL (7.9-10.8); MONOCYTES # (AUTO) 0.3 10^3/uL (0.0-1.0); NEUTROPHILS # (AUTO) 3.3 10^3/uL (1.5-6.6); NEUTROPHILS % (AUTO) 72.4 %; PLT - PLATELET COUNT 175 10^3/uL (130-450); RED BLOOD COUNT 3.72 10^6/uL (4.20-5.40); RED CELL DISTRIBUTION WIDTH 11.2 % (12.0-15.0); WHITE BLOOD COUNT 4.6 x10^3/uL (4.8-10.8)
--- NOTE | 2021-08-28 15:46 | ED Physician Documentation ---
History of Present Illness - Stated complaint Stated Complaint: ETOH/L ARM NUMBNESS - Chief complaint Chief Complaint: MHE - History obtained from History obtained from: Patient - Additonal information Additional information: Patient comes emergency department for chief complaint of "I feel like I am in liver failure and I am afraid I have had a heart attack.". The patient states that she has been having symptoms like chest tightness at night for the last month and so diabetes, pain in both her shoulders. She also occasionally has whole body tingling. The patient does note that she had some nausea and vomiting this morning after waking up. The patient states she has been under a lot of stress, especially since 2019 when her was deployed to [facility] [facility] for extended period of time. She has 3 young children and has a history of alcoholism, but states her drinking went from beer and wine to 1/5 of vodka a day during that time. Patient states she is cut back down on the drinking, but still drinks on more or less daily basis. Patient states that initially, she had been drinking from her family, but ultimately, had to be honest. Her family has been supportive and patient states that actually, she was reading her Bible this morning and felt convicted that she should stop drinking completely. Her last drink was last night and she has not had another drink today. Patient denies other complaints at this time. She denies abdominal pain. No icterus. Patient states she is otherwise healthy. Review of Systems Ten Systems: 10 systems reviewed and negative Constitutional: reports: Reviewed and negative Eyes: reports: Reviewed and negative Ears: reports: Reviewed and negative Nose: reports: Reviewed and negative Throat: reports: Reviewed and negative Cardiac: reports: Chest pain / pressure Respiratory: reports: Reviewed and negative GI: reports: Nausea, Vomiting : reports: Reviewed and negative Skin: reports: Reviewed and negative Musculoskeletal: reports: Reviewed and negative Neurologic: reports: Other (Tingling) Psychiatric: reports: Reviewed and negative Endocrine: reports: Reviewed and negative Immunocompromised: reports: Reviewed and negative PD PAST MEDICAL HISTORY - Past Medical History Cardiovascular: None Respiratory: None Neuro: None Endocrine/Autoimmune: None GI: None 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: Endometriosis : None Psych: None Musculoskeletal: None Derm: None - Past Surgical History Past Surgical History: Yes HEENT: Tonsil/Adenoidectomy - Present Medications Home Medications: Ambulatory Orders Medication Instructions Recorded Confirmed Aspirin Chewable [[facility] 81 mg PO DAILY #15 tablet 12/13/19 Aspirin] Atorvastatin [Lipitor] 20 mg PO DAILY #30 tablet 12/13/19 Naltrexone HCl 50 mg PO DAILY #10 tablet 12/13/19 Vitamin [Trinatal Rx 1] 1 tab PO DAILYWM #15 tablet 12/13/19 SUMAtriptan [Imitrex] 25 mg PO Q6H PRN #10 tablet 12/13/19 Thiamine [Vitamin B-1] 100 mg PO DAILY #15 tablet 12/13/19 Potassium Chloride [K-Dur] 20 meq PO BIDWM #14 tablet 08/28/21 - Allergies Allergies/Adverse Reactions: Allergies Allergy/AdvReac Type Severity Reaction Status Date / Time No Known Drug Allergies Allergy Verified 12/11/19 22:16 - Social History Does the pt smoke?: No Smoking Status: Never smoker Does the pt drink ETOH?: No Does the pt have substance abuse?: No - Immunizations Immunizations are current?: Yes Immunizations: TDAP >10years/unknown - POLST Patient has POLST: Yes POLST Status: Full Code PD ED PE NORMAL - Vitals Vital signs reviewed: Yes - General General: Alert and oriented X 3, No acute distress, Well developed/nourished - HEENT HEENT: Atraumatic, PERRL, EOMI, Moist mucous membranes - Neck Neck: Supple, no meningeal sign - Cardiac Cardiac: RRR, No murmur, Strong equal pulses - Respiratory Respiratory: No respiratory distress, Clear bilaterally - Abdomen Abdomen: Soft, Non tender, Non distended - Derm Derm: Normal color, Warm and dry, No rash - Extremities Extremities: No deformity, No edema - Neuro Neuro: Alert and oriented X 3, 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 room 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 intact, Normal speech, Other (Appears sober, grossly intact) - Psych Psych: Normal mood, Normal affect Results - Vitals Vitals: Oxygen O2 Source Room air - Labs Labs: Laboratory Tests 08/28/21 08/28/21 08/28/21 15:31 15:31 15:31 WBC 4.6 L RBC 3.72 L Hgb 13.2 Hct 38.7 MCV 104.0 H MCH 35.5 H MCHC 34.1 RDW 11.2 L Plt Count 175 MPV 9.4 Neut # (Auto) 3.3 Lymph # (Auto) 0.8 L [place] # (Auto) 0.3 Eos # (Auto) 0.1 Baso # (Auto) 0.0 Absolute Nucleated RBC 0.00 Nucleated RBC % 0.0 Sodium 133 L Potassium 3.4 L Chloride 91 L Carbon Dioxide 26 Anion Gap 16.0 H BUN 10 Creatinine 0.7 Estimated GFR (MDRD) 95 Glucose 94 Calcium 9.6 Total Bilirubin 1.5 H AST 209 H ALT 183 H Alkaline Phosphatase 47 Total Protein 8.0 Albumin 4.8 Globulin 3.2 Albumin/Globulin Ratio 1.5 Lipase 21 L Serum HCG, Qual Ethyl Alcohol < 5.0 08/28/21 15:31 WBC RBC Hgb Hct MCV MCH MCHC RDW Plt Count MPV Neut # (Auto) Lymph # (Auto) [place] # (Auto) Eos # (Auto) Baso # (Auto) Absolute Nucleated RBC Nucleated RBC % Sodium Potassium Chloride Carbon Dioxide Anion Gap BUN Creatinine Estimated GFR (MDRD) Glucose Calcium Total Bilirubin AST ALT Alkaline Phosphatase Total Protein Albumin Globulin Albumin/Globulin Ratio Lipase Serum HCG, Qual NEGATIVE Ethyl Alcohol PD MEDICAL DECISION MAKING - ED course Complexity details: reviewed results, re-evaluated patient, considered differential, d/w patient ED course: The patient was worked up with laboratory studies. The patient's work-up was negative, except for some elevations of liver enzymes, which I suspected were due to her chronic alcohol abuse. I have discussed with the patient that she is extremely low risk for coronary artery disease, but that the issue she needs to take very seriously as the impact her drinking is having on her health. The patient states she has decided not to drink any alcohol anymore. The patient is already established with AA and does not want to pursue any sort of inpatient treatment at this time. We have discussed the usual indications for return. Departure - Departure Disposition: 01 Home, Self Care Clinical Impression: Alcoholic liver disease, Hyponatremia, Hypokalemia Condition: Stable Instructions: ED Hyponatremia, ED Potassium Deficiency, ED Alcohol Abuse Prescriptions: Potassium Chloride [K-Dur] 20 meq PO BIDWM #14 tablet Comments: Your labs show mild elevations of your liver enzymes, which is probably from your chronic alcohol abuse. You have mildly decreased sodium and potassium, and this could be responsible for the tingling you have been feeling. As far as the chest pressure at night that radiates to your shoulders, the most likely cause of this is reflux of stomach contents. You may take some Maalox for this to help prevent some Entriflex at night. Additionally, stopping alcohol will firm up the sphincter muscle and that keeps stomach contents from refluxing. Your EKG looks good and you are very young and very low risk for coronary artery disease. Please continue to pursue sobriety, as this will be much better for your health and most likely get you feeling a lot better. Please be sure to drink plenty of fluids. Take the potassium supplements as prescribed. The sodium should correct itself fairly quickly, as long as you are eating a normal diet. Discharge Date/Time: 08/28/21 16:56
[2021-08-28 15:55] LABS: ALBUMIN 4.8 g/dL (3.2-5.5); ALBUMIN/GLOBULIN RATIO 1.5 (1.0-2.2); BILIRUBIN,TOTAL 1.5 mg/dL (0.2-1.0); CALCIUM 9.6 mg/dL (8.5-10.3); CREATININE 0.7 mg/dL (0.4-1.0); POTASSIUM 3.4 mmol/L (3.5-5.0)
[2021-08-28 16:33] LABS: HCG,QUALITATIVE BLOOD NEGATIVE
[2021-08-28 16:49] VITALS: BP 140/101
== END 2021-08-28 16:56 | disposition home or self-care (01) ==
LOC: EDUNIT# → ED 14:37
DX: K70.9 Alcoholic liver disease, unspecified (principal); E87.1 Hypo-osmolality and hyponatremia; E87.6 Hypokalemia
CPT/HCPCS: 36415; 80048; 80053; 80320; 83690; 84703; 85025; 99283; 99284

== ENCOUNTER 2022-06-15 13:48 | Outpatient (CLI) | payer OTHER | END 2022-06-15 13:49 | disposition critical access hospital (66) | LOC: EMS 13:48 | DX: R07.9 Chest pain, unspecified (principal) | CPT/HCPCS: A0425; A0427 ==

== ENCOUNTER 2022-06-15 14:46 | Emergency (ER) | payer OTHER ==
--- NOTE | 2022-06-15 15:13 | ED Physician Documentation ---
History of Present Illness - Stated complaint Stated Complaint: CHEST PAIN - Chief complaint Chief Complaint: Cardiac - Additonal information Additional information: 37-year-old female presents emergency department for evaluation of intermittent left-sided chest pain. She reports that this has been an ongoing problem for at least 2 months. Not associated with food or ambulation. She does sometimes have pain with a deep breath. She is now 20 days sober from alcohol but over the last 24 hours she has noticed increased frequency of chest pain. She does have radiation to the arm. No hypoxia. 9 she has historically been told that she has GERD and gastritis. Also Hoang. She is scheduled to see her primary care provider tomorrow for which she plans to discuss the need for an EGD, GI referral as well as obtain treatment for her depression. Review of Systems Constitutional: denies: Fever, Chills Eyes: reports: Reviewed and negative Throat: reports: Reviewed and negative Cardiac: reports: Chest pain / pressure. denies: Palpitations, Pedal edema, Calf pain Respiratory: denies: Dyspnea, Cough, Hemoptysis, Wheezing GI: reports: Reviewed and negative : reports: Reviewed and negative Skin: reports: Reviewed and negative PD PAST MEDICAL HISTORY - Past Medical History Past Medical History: Yes Cardiovascular: None Respiratory: None Neuro: None Endocrine/Autoimmune: None GI: None CONTROL CLERK: Endometriosis : None Psych: None Musculoskeletal: None Derm: None - Past Surgical History Past Surgical History: Yes HEENT: Tonsil/Adenoidectomy - Present Medications Home Medications: Ambulatory Orders Medication Instructions Recorded Confirmed Aspirin Chewable [[place] 81 mg PO DAILY #15 tablet 12/13/19 Aspirin] Atorvastatin [Lipitor] 20 mg PO DAILY #30 tablet 12/13/19 Naltrexone HCl 50 mg PO DAILY #10 tablet 12/13/19 Vitamin [Trinatal Rx 1] 1 tab PO DAILYWM #15 tablet 12/13/19 SUMAtriptan [Imitrex] 25 mg PO Q6H PRN #10 tablet 12/13/19 Thiamine [Vitamin B-1] 100 mg PO DAILY #15 tablet 12/13/19 Potassium Chloride [K-Dur] 20 meq PO BIDWM #14 tablet 08/28/21 - Allergies Allergies/Adverse Reactions: Allergies Allergy/AdvReac Type Severity Reaction Status Date / Time No Known Drug Allergies Allergy Verified 06/15/22 15:00 - Social History Does the pt smoke?: No Smoking Status: Never smoker Does the pt drink ETOH?: No Does the pt have substance abuse?: No - Immunizations Immunizations are current?: Yes Immunizations: TDAP >10years/unknown - POLST Patient has POLST: Yes POLST Status: Full Code PD ED PE NORMAL - General General: Alert and oriented X 3, No acute distress, Well developed/nourished - HEENT HEENT: Atraumatic, Moist mucous membranes - Neck Neck: Supple, no meningeal sign, No adenopathy - Cardiac Cardiac: RRR, No murmur - Respiratory Respiratory: No respiratory distress, Clear bilaterally - Abdomen Abdomen: Normal bowel sounds, Soft - Back Back: No CVA TTP - Derm Derm: Normal color, Warm and dry, No rash - Extremities Extremities: No deformity, No tenderness to palpate, Normal ROM s pain - Neuro Neuro: Alert and oriented X 3, 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 No: Prolonged QT QRS: Normal Ischemia: Non specific changes (Inferior leads) Compare to prior EKG: Old EKG unavailable Computer interpretation: Agree with computer - Labs Labs: Laboratory Tests 06/15/22 06/15/22 06/15/22 15:25 15:25 15:25 WBC 7.0 RBC 3.62 L Hgb 12.6 Hct 39.1 MCV 108.0 H MCH 34.8 H MCHC 32.2 RDW 11.9 L Plt Count 207 MPV 9.2 Neut # (Auto) 5.5 Lymph # (Auto) 1.1 L [place] # (Auto) 0.3 Eos # (Auto) 0.0 Baso # (Auto) 0.0 Absolute Nucleated RBC 0.00 Nucleated RBC % 0.0 Sodium 132 L Potassium 4.0 Chloride 99 L Carbon Dioxide 18 L Anion Gap 15.0 H BUN 10 Creatinine 0.7 Estimated GFR (MDRD) 95 Glucose 87 Calcium 9.4 Total Bilirubin 1.7 H AST 115 H ALT 72 H Alkaline Phosphatase 52 Troponin I High Sens < 2.3 L Total Protein 8.0 Albumin 4.6 Globulin 3.4 Albumin/Globulin Ratio 1.4 Lipase 21 L Serum HCG, Qual 06/15/22 15:25 WBC RBC Hgb Hct MCV MCH MCHC RDW Plt Count MPV Neut # (Auto) Lymph # (Auto) [place] # (Auto) Eos # (Auto) Baso # (Auto) Absolute Nucleated RBC Nucleated RBC % Sodium Potassium Chloride Carbon Dioxide Anion Gap BUN Creatinine Estimated GFR (MDRD) Glucose Calcium Total Bilirubin AST ALT Alkaline Phosphatase Troponin I High Sens Total Protein Albumin Globulin Albumin/Globulin Ratio Lipase Serum HCG, Qual NEGATIVE - Rads (name of study) cxr Radiology: EMP read indepedently (No acute cardiopulmonary process) PD MEDICAL DECISION MAKING - ED course Complexity details: reviewed results, re-evaluated patient, considered differential, d/w patient ED course: 37-year-old female presents to the emergency department for evaluation of chest pain that has been intermittent for about 2 months. This does follow a recent episode of sobriety that started 20 days ago. She has been told that she needs an EGD as well as having acid reflux. She has been told that her liver function tests are abnormal. On presentation her EKG is nonischemic. Despite intermittent chest pain for 2 months her troponin is negative. She does present is mildly tachycardic. She was given some IV fluids here in the emergency department. Potassium was mildly low at 3.3. We do see that she has some transaminase that are consistent with alcoholic hepatitis AST to ALT elevation at 2-1. Patient is scheduled to see her primary care provider tomorrow. She will likely require referral to GI for longer-term evaluation of her alcoholic hepatitis as well as her concerns for acid reflux. At this time no emergent medical condition is seen and she is stable for discharge home she will see her PCP tomorrow and follow-up Departure - Departure Disposition: 01 Home, Self Care Clinical Impression: Alcoholic hepatitis without ascites Chest pain Qualifiers: Chest pain type: unspecified Qualified Code(s): R07.9 - Chest pain, unspecified Follow-Up: Sandee Orta MD [Primary Care Provider] - Comments: Ilda came to the emergency department today because you have been having some intermittent chest pain for about 2 months. Today in the ED the your EKG did not show any findings of a heart attack. We did check a lab called a troponin that was negative. Your chest x-ray does not show any worrisome findings. We did obtain liver function tests and you do have some abnormalities that are most consistent with long-term alcohol abuse. This is called alcoholic hepatitis. There is no acute treatment indicated today but your primary care doctor should make a referral for you to GI. It is with this referral they can discuss longer-term management of your abnormal liver function tests as well as get you scheduled to have an EGD. Please do not miss follow-up with your primary care provider tomorrow as already scheduled. You should be referred for an outpatient echocardiogram and/or stress test. If at any point you develop any fainting episodes, have sudden severe chest pain or shortness of air then return to the ER
[2022-06-15 15:31] LABS: BASOPHILS % (AUTO) 0.6 %; EOSINOPHILS % (AUTO) 0.1 %; HCT - HEMATOCRIT 39.1 % (37.0-47.0); HGB - HEMOGLOBIN 12.6 g/dL (12.0-16.0); LYMPHOCYTES # (AUTO) 1.1 10^3/uL (1.5-3.5); LYMPHOCYTES % (AUTO) 15.8 %; MEAN CORPUSCULAR HEMOGLOBIN 34.8 pg (27.0-31.0); MEAN CORPUSCULAR HGB CONC 32.2 g/dL (32.0-36.0); MEAN PLATELET VOLUME 9.2 fL (7.9-10.8); MONOCYTES # (AUTO) 0.3 10^3/uL (0.0-1.0); MONOCYTES % (AUTO) 4.6 %; NEUTROPHILS # (AUTO) 5.5 10^3/uL (1.5-6.6); NEUTROPHILS % (AUTO) 78.3 %; PLT - PLATELET COUNT 207 10^3/uL (130-450); RED BLOOD COUNT 3.62 10^6/uL (4.20-5.40); RED CELL DISTRIBUTION WIDTH 11.9 % (12.0-15.0)
[2022-06-15 15:45] LABS: ALBUMIN 4.6 g/dL (3.2-5.5); ALBUMIN/GLOBULIN RATIO 1.4 (1.0-2.2); BILIRUBIN,TOTAL 1.7 mg/dL (0.2-1.0); CALCIUM 9.4 mg/dL (8.5-10.3); CREATININE 0.7 mg/dL (0.4-1.0)
[2022-06-15 15:50] LABS: HCG,QUALITATIVE BLOOD NEGATIVE
--- NOTE | 2022-06-15 15:50 | XRAY Report ---
PROCEDURE: Chest 1 View X-Ray INDICATIONS: Chest Pain TECHNIQUE: One view of the chest was acquired. COMPARISON: None. FINDINGS: Surgical changes and devices: None. Lungs and pleura: No pleural effusions or pneumothorax. Lungs are clear. Mediastinum: Mediastinal contours appear normal. Heart size is normal. Bones and chest wall: No suspicious bony lesions. Overlying soft tissues appear unremarkable. IMPRESSION: No acute process. Reviewed by: Kendra Fournier MD on 06/15/2022 3:[address] [facility] Approved by: Kendra Fournier MD on 06/15/2022 3:[address] [facility] Station ID: [id number]
[2022-06-15 16:36] VITALS: BP 117/73
== END 2022-06-15 16:36 | disposition home or self-care (01) ==
LOC: EDUNIT# → ED 14:46
DX: K70.11 Alcoholic hepatitis with ascites (principal); E87.6 Hypokalemia
CPT/HCPCS: 36415; 80053; 83690; 84484; 84703; 85025; 93005; 99284

== ENCOUNTER 2023-08-30 08:00 | Outpatient (CLI) | payer OTHER ==
[2023-08-30 19:51] LABS: BACTERIAL VAGINOSIS DNA POSITIVE (NEGATIVE); CANDIDA GLABRATA DNA NEGATIVE (NEGATIVE); CANDIDA GROUP DNA NEGATIVE (NEGATIVE); CANDIDA KRUSEI DNA NEGATIVE (NEGATIVE); TRICHOMONAS VAGINALIS DNA NEGATIVE (NEGATIVE)
== END 2023-08-30 23:59 | disposition home or self-care (01) ==
LOC: LAB 08:00
PROVIDERS: ATTEND Obstetrics & Gynecology
DX: N89.8 Other specified noninflammatory disorders of vagina (principal)
CPT/HCPCS: 81514

== ENCOUNTER 2023-11-16 09:37 | Emergency (ER) | payer OTHER ==
[2023-11-16 10:32] LABS: BASOPHILS % (AUTO) 0.6 %; EOSINOPHILS % (AUTO) 0.3 %; HCT - HEMATOCRIT 39.8 % (37.0-47.0); HGB - HEMOGLOBIN 12.8 g/dL (12.0-16.0); LYMPHOCYTES # (AUTO) 1.1 10^3/uL (1.5-3.5); LYMPHOCYTES % (AUTO) 16.6 %; MEAN CORPUSCULAR HEMOGLOBIN 33.9 pg (27.0-31.0); MEAN CORPUSCULAR HGB CONC 32.2 g/dL (32.0-36.0); MEAN CORPUSCULAR VOLUME 105.3 fL (81.0-99.0); MEAN PLATELET VOLUME 9.2 fL (7.9-10.8); MONOCYTES # (AUTO) 0.4 10^3/uL (0.0-1.0); MONOCYTES % (AUTO) 5.9 %; NEUTROPHILS % (AUTO) 76.3 %; PLT - PLATELET COUNT 245 10^3/uL (130-450); RED BLOOD COUNT 3.78 10^6/uL (4.20-5.40); RED CELL DISTRIBUTION WIDTH 12.6 % (12.0-15.0); WHITE BLOOD COUNT 6.6 x10^3/uL (4.8-10.8)
[2023-11-16] MEDS: ONDANSETRON ODT 4 MG TABLET TL STA (10:56)
--- NOTE | 2023-11-16 10:58 | ED Physician Documentation ---
History of Present Illness - Stated complaint Stated Complaint: DETOX - Chief complaint Chief Complaint: General - History obtained from History obtained from: Patient - Additonal information Additional information: Patient is a 38-year-old female Presenting for detox from alcohol. Patient states she has been drinking 1/5 of alcohol daily recently. She is wanting to stop drinking. She last had alcohol just prior to arrival in the parking lot. She is accompanied by her [id number]. She denies suicidal or homicidal thoughts. She has never been in inpatient detox. She did quit on her own in the fall for 30 days but states that it felt terrible. Denies a history of seizures from withdrawing. Reports she started drinking again because of "everything". Denies other substance abuse. Does not currently take any other medications. Review of Systems Constitutional: denies: Fever Cardiac: denies: Chest pain / pressure Respiratory: denies: Dyspnea GI: reports: Nausea. 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 : None HEENT: None Psych: Depression, Anxiety Musculoskeletal: None Derm: None - Past Surgical History Past Surgical History: Yes Ortho: Other /CINDER CRUSHER OPERATOR: Tubal ligation HEENT: Tonsil/Adenoidectomy - Present Medications Home Medications: Ambulatory Orders Medication Instructions Recorded Confirmed Multivitamin 1 each PO DAILY 10/01/23 11/16/23 Acetaminophen 650 mg PO Q4HR PRN #30 ea 10/05/23 11/16/23 Docusate Sodium 100Mg Capsule 100 - 200 mg PO BID PRN #60 cap 10/05/23 11/16/23 [Colace 100Mg Capsule] Ibuprofen [Motrin] 600 mg PO Q6H PRN #30 tab 10/05/23 11/16/23 oxyCODONE [Roxicodone] 5 mg PO Q4HR PRN #10 tab 10/05/23 LORazepam [Ativan] 1 mg PO Q6HR PRN #15 tablet 11/16/23 Ondansetron Odt [Zofran] 4 mg TL Q6H PRN #10 tablet 11/16/23 - Allergies Allergies/Adverse Reactions: Allergies Allergy/AdvReac Type Severity Reaction Status Date / Time adhesive tape Allergy Itching Verified 11/16/23 09:48 - Social History Does the pt smoke?: No Smoking Status: Never smoker Does the pt drink ETOH?: No ETOH Use: Liquor Does the pt have substance abuse?: No - Immunizations Immunizations are current?: Yes Immunizations: TDAP >10years/unknown - POLST Patient has POLST: Yes POLST Status: Full Code PD ED PE NORMAL - General General: Alert and oriented X 3, No acute distress, Well developed/nourished - HEENT HEENT: Atraumatic, Moist mucous membranes, Pharynx benign - Neck Neck: Supple, no meningeal sign - Cardiac Cardiac: RRR, Strong equal pulses - Respiratory Respiratory: No respiratory distress, Clear bilaterally - Abdomen Abdomen: Normal bowel sounds, Soft, Non tender, Non distended - Derm Derm: Warm and dry - Neuro Neuro: Alert and oriented X 3, No motor deficit, Normal speech Results - Vitals Vitals: Vital Signs - 24 hr 11/16/23 11/16/23 11/16/23 09:48 10:31 12:36 Temperature 36.5 C Heart Rate 125 H 120 H 85 Respiratory 18 18 24 Rate Blood Pressure 153/109 H 118/80 O2 Saturation 97 97 97 11/16/23 13:03 Temperature 36 C L Heart Rate 79 Respiratory 16 Rate Blood Pressure 108/75 O2 Saturation 99 Oxygen O2 Source Room air - EKG (time done) 1023 EKG releavant findings:: EKG personally interpreted by author of this note. Relevant findings are: Rate 95, NSR, QTC 479 - Labs Labs: Laboratory Tests 11/16/23 11/16/23 11/16/23 10:28 10:28 12:30 WBC 6.6 RBC 3.78 L Hgb 12.8 Hct 39.8 MCV 105.3 H MCH 33.9 H MCHC 32.2 RDW 12.6 Plt Count 245 MPV 9.2 Neut # (Auto) 5.0 Lymph # (Auto) 1.1 L [place] # (Auto) 0.4 Eos # (Auto) 0.0 Baso # (Auto) 0.0 Absolute Nucleated RBC 0.00 Nucleated RBC % 0.0 Sodium 136 Potassium 3.6 Chloride 100 L Carbon Dioxide 24 Anion Gap 12.0 BUN 5 L Creatinine 0.5 L Estimated GFR (MDRD) 139 Glucose 115 H Calcium 9.9 Total Bilirubin 0.6 AST 117 H ALT 57 Alkaline Phosphatase 79 Total Protein 8.0 Albumin 4.7 Globulin 3.3 Albumin/Globulin Ratio 1.4 Lipase 12 Urine Color YELLOW Urine Clarity CLEAR Urine pH 6.0 Ur Specific [place] 1.010 Urine Protein NEGATIVE Urine Glucose (UA) NEGATIVE Urine Ketones NEGATIVE Urine Occult Blood SMALL H Urine Nitrite NEGATIVE Urine Bilirubin NEGATIVE Urine Urobilinogen 0.2 (NORMAL) Ur Leukocyte Esterase SMALL H Urine RBC 0-5 Urine WBC >25 H Ur Squamous Epith Cells MOD Squamous H Urine Bacteria Moderate H Ur Microscopic Review INDICATED Urine Culture Comments NOT INDICATED Urine HCG, Qual NEGATIVE Salicylates < 1.5 Urine Opiates Screen NEGATIVE Ur Buprenorphine Scrn NEGATIVE Ur Oxycodone Screen NEGATIVE Urine Methadone Screen NEGATIVE Acetaminophen 0.1 Ur Barbiturates Screen NEGATIVE Ur Tricyclics Screen NEGATIVE Ur Phencyclidine Scrn NEGATIVE Ur Amphetamine Screen NEGATIVE U Methamphetamines Scrn NEGATIVE U Benzodiazepines Scrn NEGATIVE Urine Cocaine Screen NEGATIVE U Cannabinoids Screen NEGATIVE Ur Drug Screen Comment CUTOFF CONC BELOW: Ethyl Alcohol 307.8 PD Medical Decision Making - ED course Complexity details: reviewed results, d/w patient, d/w family ED course: Patient is a 38-year-old female presenting for help with alcohol addiction. She has just had alcohol prior to arrival in the parking lot. She is able to hold a clear conversation with clear speech and ambulating on her own. Screening labs were obtained including CBC, chemistries, toxicology, urine analysis. EtOH is elevated at 307. AST is elevated at 117. Patient has been seen by social work and given resources. She has reached out to detox facilities and is waiting to hear back. At this time she is stable for discharge while she awaits hearing back from facilities on bed availability. She is agreeable to trial of Ativan to help with any withdrawal symptoms that she may have at home. [id number] plans to hold onto this medication for her and dispense when needed. Patient is agreeable to this. She does not seem to be in withdrawal at this time. She is not suicidal or homicidal. Counseled on concerning symptoms to return for. Departure - Departure Disposition: 01 Home, Self Care Clinical Impression: Alcohol intoxication, Alcohol use disorder Condition: Stable Instructions: ED Withdrawal Alcohol Prescriptions: LORazepam [Ativan] 1 mg PO Q6HR PRN #15 tablet PRN Reason: Alcohol Withdrawal Ondansetron Odt [Zofran] 4 mg TL Q6H PRN #10 tablet PRN Reason: Nausea / Vomiting Comments: Please use the resources given to you by our social work msw to get into a detox facility. In the meanwhile I have sent prescriptions for medication called Ativan to help you with withdrawal symptoms to [facility] in [place]. This is a benzodiazepine and can cause sedation so do not take this medication if you are using alcohol at all. I would recommend you have your [id number] hold onto this medication for you as we have discussed. I also sent an antinausea medication. If you develop any worsening symptoms please return to the emergency department. [facility] [address] [place] [address] , [place], [place] [facility] offers a monitored and safe setting for individuals withdrawing from alcohol and drugs, and counseling for individuals experiencing a mental health crisis. All services are provided in a 10-bed facility where intensive medical monitoring is required along with stabilization services. The goal of these services is to assess a clients mental health and substance use disorder related needs, and assist them in accessing the services they need to recover. Forms: PCP List Discharge Date/Time: 11/16/23 13:13
[2023-11-16 11:07] LABS: ACETAMINOPHEN 0.1 ug/mL; ALBUMIN 4.7 g/dL (3.2-5.5); ALBUMIN/GLOBULIN RATIO 1.4 (1.0-2.2); ALKALINE PHOSPHATASE 79 IU/L (42-121); ALT ALANINE AMINOTRANSFERASE 57 IU/L (10-60); AST ASPARTATE AMINOTRANSFERASE 117 IU/L (10-42); BILIRUBIN,TOTAL 0.6 mg/dL (0.2-1.0); BUN - BLOOD UREA NITROGEN 5 mg/dL (6-20); CALCIUM 9.9 mg/dL (8.5-10.3); CARBON DIOXIDE - CO2 24 mmol/L (21-32); CHLORIDE 100 mmol/L (101-111); CREATININE 0.5 mg/dL (0.6-1.3); ETOH - ETHANOL 307.8 mg/dL; GFR - MDRD 139 (>89); GLUCOSE 115 mg/dL (74-104); LIPASE 12 U/L (11-82); POTASSIUM 3.6 mmol/L (3.5-4.5); SODIUM 136 mmol/L (135-145)
[2023-11-16 11:11] LABS: SALICYLATE < 1.5 mg/dL
[2023-11-16 12:44] LABS: BILIRUBIN,URINE NEGATIVE (NEGATIVE); GLUCOSE, URINE (UA) NEGATIVE (NEGATIVE); KETONES,URINE (UA) NEGATIVE (NEGATIVE); LEUKOCYTE ESTERASE, URINE SMALL (NEGATIVE); NITRITE,URINE NEGATIVE (NEGATIVE); OCCULT BLOOD,URINE SMALL (NEGATIVE); PROTEIN,URINE NEGATIVE (NEGATIVE); UROBILINOGEN,URINE 0.2 (NORMAL) E.U./dL (NORMAL)
[2023-11-16 12:50] LABS: CLARITY,URINE CLEAR (CLEAR); HCG UR QUAL NEGATIVE
[2023-11-16 13:02] LABS: AMPHETAMINE SCREEN,URINE NEGATIVE (NEGATIVE); BARBITURATE SCREEN,UR NEGATIVE (NEGATIVE); BENZODIAZEPINES SCREEN, URINE NEGATIVE (NEGATIVE); BUPRENORPHINE SCREEN, URINE NEGATIVE (NEGATIVE); COCAINE SCREEN URINE NEGATIVE (NEGATIVE); METHADONE SCREEN, URINE NEGATIVE (NEGATIVE); METHAMPHETAMINES SCREEN, URINE NEGATIVE (NEGATIVE); OPIATE SCREEN, URINE NEGATIVE (NEGATIVE); OXYCODONE SCREEN, URINE NEGATIVE (NEGATIVE); THC CANNABINOID SCREEN, URINE NEGATIVE (NEGATIVE); TRICYCLIC ANTIDEPRESSANT,URINE NEGATIVE (NEGATIVE)
[2023-11-16 13:17] VITALS: BP 108/75; O2SAT 99
[2023-11-16 13:20] LABS: BACTERIA,URINE Moderate /HPF (None Seen); RBC,URINE 0-5 /HPF (0-5); SQUAMOUS EPITHELIAL CELL,UR MOD Squamous (<= Few); WBC,URINE >25 /HPF (0-5)
== END 2023-11-16 13:13 | disposition home or self-care (01) ==
LOC: ED 09:37
DX: F10.129 Alcohol abuse with intoxication, unspecified (principal); Y90.8 Blood alcohol level of 240 mg/100 ml or more
CPT/HCPCS: 36415; 80053; 80143; 80179; 80306; 81001; 81025; 82077; 83690; 85025; 93005; 99284; Q0162; 81003; 87086